=== PATIENT | female | born 1970 | race Caucasian/White ===

== ENCOUNTER 2017-08-30 19:02 | Inpatient (IN) | payer OTHER ==
[~2017-08-30] VITALS: Ht 162.6 cm; Wt 76.1 kg
[2017-08-30] VITALS (8 sets, daily range): BP systolic 90–122; BP diastolic 55–76; PULSE 94–127; RESP 16–18; TEMP 99.1–102.3; O2SAT 95–97
[2017-08-30] MEDS: AZTREONAM INJ 1,000 MG in SODIUM CHLORIDE 0.9% INJ 100 ML IV SCH (00:50)
[~2017-08-30 19:02] MED LIST: IRON PO; LOVA40TA PO; MULT1TAB84 PO; PROT40TA PO; TIZA2CAP3 PO; VITAMIN C PO; [UNRECOGNIZED DRUG - CODE] NASAL
[2017-08-30] MEDS ORDERED: SODIUM CHLOR 0.9% 1000 ML INJ 1,000 ML IV SCH ×2 (19:46→21:45)
--- NOTE | 2017-08-30 19:46 | PD ---
HPI . Fever, headache, abdominal pain Chief Complaint: fever, headache, abdominal pain Time Seen by Provider: 19:27 Travel History International Travel<30 days: No Contact w/Intl Traveler<30days: No Traveled to known affect area: No History of Present Illness HPI The patient is a 47-year-old female with a history of Juvencio-en-Y gastric bypass that complains of generalized abdominal pain and global headache beginning this morning. This afternoon she experienced fever and fatigue. She recently had a breast reduction surgery on the by Dr. De La Cruz and the drains came out on the and for the last 2 hours she complains of right breast pain. She has nausea without vomiting. She denies any diarrhea. She denies any dysuria, frequency or urgency. She denies any cough or shortness of breath. She has had a cholecystectomy but still has her appendix. PFSH Past Medical History Anemia: Yes Arthritis: No Asthma: No Autoimmune Disease: No Blood Disorders: No Anxiety: Yes Depression: Yes Heart Rhythm Problems: No Cancer: Yes (CERVICAL) Cardiovascular Problems: No High Cholesterol: Yes Chemotherapy: No Chest Pain: No Congestive Heart Failure: No COPD: No Cerebrovascular Accident: No Diabetes: Yes (DM II WHICH RESOLVED POST LAP BAND SURGERY) Diminished Hearing: No Endocrine: Yes Gastrointestinal Disorders: Yes (GERD) GERD: Yes Glaucoma: No Genitourinary: No Headaches: No Hepatitis: No Hiatal Hernia: Yes Hypertension: No Immune Disorder: No Kidney Stones: No 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) Neurologic: No Psychiatric: Yes (DEPRESSION) Reproductive: No Respiratory: No Migraines: Yes Myocardial Infarction: No Pancreatitis: Yes Radiation Therapy: No Renal Failure: No Seizures: No Sickle Cell Disease: No Sleep Apnea: No Thyroid Disease: No Ulcer: No Menopausal: Yes : 3 Para: 2 Miscarriage: 1 Past Surgical History Abdominal Surgery: Yes (LAP BAND, CHOLYCYSTECTOMY) AICD: No Appendectomy: No Arteriovenous Shunt: No Body Medical Devices: LAP BAND Cardiac Surgery: No Cholecystectomy: Yes Coronary Stent: Yes Ear Surgery: No Endocrine Surgery: No Eye Surgery: No Genitourinary Surgery: No Gynecologic Surgery: Yes (HYSTERECTOMY) Hysterectomy: Yes Insulin Pump: No Joint Replacement: No Oral Surgery: No Pacemaker: No Thoracic Surgery: No Tonsillectomy: Yes Other Surgery: Yes (LAP BAND) Social History Alcohol Use: Yes (occ) Tobacco Use: No Substance Use: No Allergies-Medications (Allergen,Severity, Reaction): Coded Allergies: amoxicillin (Unverified Adverse Reaction, Severe, SEVERE VOMITING, 07/14/17 ) clavulanic acid (Unverified Adverse Reaction, Severe, SEVERE VOMITING, ) Reported Meds & Prescriptions Reported Meds & Active Scripts Active Reported N[place] Nasal Inh (Cyanocobalamin) 500 Mcg/0.1 Ml [place] 500 Mcg NASAL Q7D 1 spray in one nostril once weekly, 1 hour before or 1 hour after ingestion of hot foods/liquids. [Iron + Vitamin C] Unknown Dose PO DAILY Multivitamin Adults (Multiple Vitamins W/ Minerals) 1 Tab 1 Tab PO DAILY Protonix (Pantoprazole Sodium) 40 Mg Tab 40 Mg PO HS Tizanidine (Tizanidine HCl) 2 Mg Cap 2 Mg PO HS Lovastatin 40 Mg Tab 40 Mg PO HS Review of Systems Except as stated in HPI: all other systems reviewed are Neg Physical Exam Narrative GENERAL: The patient appears fatigued, but will answer questions quickly and appropriately. Vital signs show heart rate of 127, temperature 102.3 but otherwise normal. SKIN: Focused skin assessment warm/dry. HEAD: Atraumatic. Normocephalic. EYES: Pupils equal and round. No scleral icterus. No injection or drainage. ENT: No nasal bleeding or discharge. Mucous membranes pink and moist. NECK: Trachea midline. No JVD. There is no meningismus present. CARDIOVASCULAR: Regular rate and rhythm. No murmur appreciated. RESPIRATORY: No accessory muscle use. Clear to auscultation. Breath sounds equal bilaterally. GASTROINTESTINAL: Abdomen soft, with diffuse tenderness in all 4 quadrants, nondistended. Hepatic and splenic margins not palpable. No guarding or rebound is present. MUSCULOSKELETAL: No obvious deformities. No clubbing. No cyanosis. No edema. NEUROLOGICAL: Awake and alert. No obvious cranial nerve deficits. Motor grossly within normal limits. Normal speech. PSYCHIATRIC: Appropriate mood and affect; insight and judgment normal. Breast: Right breast has tenderness and skin discoloration in the medial lower quadrant. No fluctuance is palpated but she is exquisitely tender in that area. Data Data Last Documented VS Vital Signs Date Time Temp Pulse Resp B/P (MAP) Pulse Ox O2 Delivery O2 Flow Rate FiO2 08/30/17 20:30 102.0 112 16 122/70 (87) 95 Orders Orders Complete Blood Count With Diff (08/30/17 19:37) Comprehensive Metabolic Panel (08/30/17 19:37) Beta Hcg (Quant/Titer) (08/30/17 19:37) Lactic Acid Sepsis Protocol (08/30/17 19:37) Lipase (08/30/17 19:37) Urinalysis - C+S If Indicated (08/30/17 19:37) Blood Culture (08/30/17 19:37) Chest, Single Ap (08/30/17 19:37) Blood Glucose (08/30/17 19:37) Ecg Monitoring (08/30/17 19:37) Iv Access Insert/Monitor (08/30/17 19:37) Oximetry (08/30/17 19:37) Oxygen Administration (08/30/17 19:37) Ct Abd/Pel W Iv Contrast(Rout) (08/30/17 19:37) Morphine Inj (Morphine Inj) (08/30/17 20:00) Ondansetron Inj (Zofran Inj) (08/30/17 20:00) Sodium Chlor 0.9% 1000 Ml Inj (Ns 1000 M (08/30/17 19:46) Iohexol 350 Inj (Omnipaque 350 Inj) (08/30/17 20:18) Sodium Chlor 0.9% 1000 Ml Inj (Ns 1000 M (08/30/17 21:45) Ketorolac Inj (Toradol Inj) (08/30/17 21:45) Vancomycin Inj (Vancomycin Inj) (08/30/17 21:45) Us Breast Unilateral (08/30/17 ) Vancomycin Consult Pharmacy (Vancomycin (08/30/17 22:00) Aztreonam Inj (Azactam Inj) (08/30/17 22:00) Metronidazole 500 Mg Inj (Flagyl 500 Mg (08/30/17 22:00) Admit To Inpatient (08/30/17 ) Vital Signs (Adult) Q4H (08/30/17 21:55) Activity Oob Ad Gretel (08/30/17 21:55) Lead Nitrate Processor / Telemetry .CONTINUOUS (08/30/17 21:55) Intake + Output JACINTA.QSHIFT (08/30/17 21:55) Diet Regular Basic (08/31/17 Breakfast) Sodium Chlor 0.9% 1000 Ml Inj (Ns 1000 M (08/30/17 21:55) Sodium Chloride 0.9% Flush (Ns Flush) (08/30/17 22:00) Sodium Chloride 0.9% Flush (Ns Flush) (08/31/17 09:00) Ondansetron Inj (Zofran Inj) (08/30/17 22:00) Comprehensive Metabolic Panel (08/31/17 06:00) Complete Blood Count With Diff (08/31/17 06:00) Scd Bilateral/Knee High JACINTA.BID (08/30/17 21:55) Juan Bilateral/Knee High JACINTA.QSHIFT (08/30/17 22:00) Acetaminophen (Tylenol) (08/30/17 22:00) Acetamin-Hydrocod 325-5 Mg ([place] 5-325 (08/30/17 22:00) Morphine Inj (Morphine Inj) (08/30/17 22:00) Docusate Sodium-Senna (Nandini-Colace) (08/31/17 09:00) Magnesium Hydroxide Liq (Milk Of Magnesi (08/30/17 22:00) Sennosides (Senokot) (08/30/17 22:00) Bisacodyl Supp (Dulcolax Supp) (08/30/17 22:00) Lactulose Liq (Lactulose Liq) (08/30/17 22:00) Inpatient Certification (08/30/17 ) Pravastatin (Pravachol) (08/31/17 21:00) Multivitamins-Minerals Therap (Theragran (08/31/17 09:00) Pantoprazole (Protonix) (08/31/17 21:00) Tizanidine Hcl (Zanaflex) (08/31/17 21:00) Labs Laboratory Tests Test 08/30/17 20:15 08/30/17 21:00 White Blood Count 8.7 TH/MM3 Red Blood Count 4.33 MIL/MM3 Hemoglobin 11.9 GM/DL Hematocrit 36.3 % Mean Corpuscular Volume 84.0 FL Mean Corpuscular Hemoglobin 27.5 PG Mean Corpuscular Hemoglobin Concent 32.7 % Red Cell Distribution Width 13.3 % Platelet Count 268 TH/MM3 Mean Platelet Volume 8.7 FL Neutrophils (%) (Auto) 85.3 % Lymphocytes (%) (Auto) 7.5 % Monocytes (%) (Auto) 4.8 % Eosinophils (%) (Auto) 0.5 % Basophils (%) (Auto) 1.9 % Neutrophils # (Auto) 7.4 TH/MM3 Lymphocytes # (Auto) 0.7 TH/MM3 Monocytes # (Auto) 0.4 TH/MM3 Eosinophils # (Auto) 0.0 TH/MM3 Basophils # (Auto) 0.2 TH/MM3 CBC Comment AUTO DIFF Differential Comment AUTO DIFF CONFIRMED Platelet Estimate NORMAL Platelet Morphology Comment CLUMPED Red Cell Morphology Comment NORMAL Blood Urea Nitrogen 13 MG/DL Creatinine 0.97 MG/DL Random Glucose 117 MG/DL Total Protein 6.2 GM/DL Albumin 3.0 GM/DL Calcium Level 7.8 MG/DL Alkaline Phosphatase 105 U/L Aspartate Amino Transf (AST/SGOT) 15 U/L Alanine Aminotransferase (ALT/SGPT) 36 U/L Total Bilirubin 0.2 MG/DL Sodium Level 134 MEQ/L Potassium Level 4.0 MEQ/L Chloride Level 101 MEQ/L Carbon Dioxide Level 25.2 MEQ/L Anion Gap 8 MEQ/L Estimat Glomerular Filtration Rate 61 ML/MIN Lactic Acid Level 2.2 mmol/L Lipase 119 U/L Human Chorionic Gonadotropin, Quant 1 MIU/ML Urine Color YELLOW Urine Turbidity CLEAR Urine pH 7.5 Urine Specific [place] GREATER THAN 1.035 Urine Protein NEG mg/dL Urine Glucose (UA) NEG mg/dL Urine Ketones NEG mg/dL Urine Occult Blood NEG Urine Nitrite NEG Urine Bilirubin NEG Urine Leukocyte Esterase NEG Urine RBC 4-9 /hpf Urine WBC 3-5 /hpf Urine Squamous Epithelial Cells 0-5 /hpf Microscopic Urinalysis Comment CULT NOT INDICATED MDM Medical Decision Making Medical Screen Exam Complete: Yes Emergency Medical Condition: Yes Medical Record Reviewed: Yes Interpretation(s) The complete metabolic profile shows a sodium of 134, GFR of 61, calcium 7.8, total protein 6.2 with albumin 3.0 but is otherwise unremarkable. The lipase is normal. The beta-hCG is 1, she is not . The lactic acid is 2.2. Differential Diagnosis Right breast infection, intestinal abscess, small bowel obstruction, pancreatitis, electrolyte imbalance, dehydration, anemia, viral syndrome, renal insufficiency, sepsis Narrative Course The patient fits the criteria for sepsis with elevated lactic acid, tachycardia and a temperature 102.3. The CT abdomen/pelvis was unremarkable and we will look for an infection in the right breast where the patient has also symptomatic. An ultrasound is ordered of the right breast. The patient does fit the criteria for sepsis and will be admitted to Dr. Amaya. Sepsis Criteria SIRS Criteria (2 or more): Temp > 100.9 or < 96.8, Heart rate over 90 Severe Sepsis (+one): Lactate >2 Physician Communication Physician Communication I discussed the patient with Dr. Amaya. Diagnosis Primary Impression: Sepsis Additional Impression: Infection of right breast Admitting Information Admitting Physician Requests: Admit Kenyon Mascorro MD Aug 30, 2017 19:46
[2017-08-30] MEDS ORDERED: MORPHINE SULFATE 4 MG/ML INJ IV PUSH ONE (20:00)
[2017-08-30] MEDS ORDERED: ONDANSETRON HCL 4 MG/2 ML VIAL IVP ONE (20:00)
--- NOTE | 2017-08-30 20:06 | RADRPT ---
EXAM DATE/TIME: 08/30/2017 19:46 [facility] COMPARISON: No previous studies available for comparison. INDICATIONS : Fever, cough. MEDICAL HISTORY : None. SURGICAL HISTORY : Breast reduction. ENCOUNTER: Initial ACUITY: 1 day PAIN SCORE: 4/10 LOCATION: Right chest FINDINGS: A single view of the chest demonstrates the lungs to be symmetrically aerated without evidence of mas s, infiltrate or effusion. The cardiomediastinal contours are unremarkable. Osseous structures are intact. CONCLUSION: The lungs are clear. Yaya Mercedes MD on August 30, 2017 at 20:04 Board Certified Radiologist. This report was verified electronically.
[2017-08-30] MEDS ORDERED: IOHEXOL 350 MG/ML 10 ML VIAL (for RAD DIAG) IVCONTRAST ONE (20:18)
[2017-08-30 20:50] LABS: AUTOMATED NEUTROPHIL # 7.4 TH/MM3 (1.8-7.7); BASOPHIL # 0.2 TH/MM3 (0-0.2); BASOPHIL % 1.9 % (0.0-2.0); EOSINOPHIL % 0.5 % (0.0-4.0); HEMATOCRIT 36.3 % (35.0-46.0); LYMPH % 7.5 % (9.0-44.0); LYMPHOCYTE # 0.7 TH/MM3 (1.0-4.8); MEAN CORPUSCULAR HEMOGLOBIN 27.5 PG (27.0-34.0); MEAN CORPUSCULAR HGB CONC 32.7 % (32.0-36.0); MONO % 4.8 % (0.0-8.0); NEUT % 85.3 % (16.0-70.0); PLATELET COUNT 268 TH/MM3 (150-450); RED BLOOD COUNT 4.33 MIL/MM3 (4.00-5.30); RED CELL DISTRIBUTION WIDTH 13.3 % (11.6-17.2); WHITE BLOOD COUNT 8.7 TH/MM3 (4.0-11.0)
--- NOTE | 2017-08-30 20:50 | RADRPT ---
EXAM DATE/TIME: 08/30/2017 20:00 [facility] COMPARISON: CHEST SINGLE AP, August 30, 2017, 19:46. INDICATIONS : Left lower quadrant pain. IV CONTRAST: 100 cc Omnipaque 350 (iohexol) IV ORAL CONTRAST: No oral contrast ingested. RADIATION DOSE: 12.66 CTDIvol (mGy) MEDICAL HISTORY : Gastroesophageal reflux disease. Hernia, hiatal. SURGICAL HISTORY : Hysterectomy. Cholecystectomy.Gastric banding. Breast reduction. ENCOUNTER: Initial ACUITY: 1 day PAIN SCALE: 5/10 LOCATION: Left lower quadrant TECHNIQUE: Volumetric scanning of the abdomen and pelvis was performed. Using automated exposure control and ad justment of the mA and/or kV according to patient size, radiation dose was kept as low as reasonably achievable to obtain optimal diagnostic quality images. DICOM format image data is available electro nically for review and comparison. FINDINGS: LOWER LUNGS: The visualized lower lungs are clear. LIVER: Homogeneous density without lesion. There is no dilation of the biliary tree. Hemoclips in the port a from prior cholecystectomy.. SPLEEN: Normal size without lesion. PANCREAS: Within normal limits. KIDNEYS: Normal in size and shape. There is no mass, stone or hydronephrosis. Large simple cyst exophytic fr om the lower pole of the left kidney measuring 6.8 cm. ADRENAL GLANDS: Within normal limits. VASCULAR: There is no aortic aneurysm. BOWEL/MESENTERY: Anastomosis suture lines about the stomach. No dilated loops of small or large bowel. No evidence o f free fluid. ABDOMINAL WALL: Multifocal areas of soft tissue density about the right anterior and lateral chest wall extending to the posterior axillary line, the largest measuring 9.[address] density 66 Hounsfield units . There is a history of prior breast reduction. Recommend clinical correlation. RETROPERITONEUM: There is no lymphadenopathy. BLADDER: No wall thickening or mass. REPRODUCTIVE: Within normal limits. INGUINAL: There is no lymphadenopathy or hernia. MUSCULOSKELETAL: Within normal limits for patient age. CONCLUSION: 1. No dilated loops of small or large bowel. 2. Multiple soft tissue densities in the right anterior and lateral chest subcutaneous tissues. Diomedes mmend correlation with clinical and surgical history. Yaya Mercedes MD on August 30, 2017 at 20:43 Board Certified Radiologist. This report was verified electronically.
[2017-08-30 21:08] LABS: CHLORIDE 101 MEQ/L (98-107); HEMO FLAGS AUTO DIFF; SODIUM (NA) 134 MEQ/L (136-145)
[2017-08-30 21:12] LABS: ANION GAP 8 MEQ/L (5-15); BICARBONATE 25.2 MEQ/L (21.0-32.0)
[2017-08-30 21:13] LABS: BLOOD UREA NITROGEN 13 MG/DL (7-18)
[2017-08-30 21:14] LABS: BLOOD, URINE NEG (NEG); GLUCOSE,URINE NEG (NEG); KETONE, URINE NEG (NEG); NITRITE,URINE NEG (NEG); PH, URINE 7.5 (5.0-8.5)
[2017-08-30 21:15] LABS: ALT (GPT) 36 U/L (10-53); AST (GOT) 15 U/L (15-37); GLOMERULAR FILTRATION RATE 61 ML/MIN (>89)
[2017-08-30 21:17] LABS: TOTAL BILIRUBIN ADULT 0.2 MG/DL (0.2-1.0)
[2017-08-30 21:18] LABS: ALKALINE PHOSPHATASE 105 U/L (45-117)
[2017-08-30 21:20] LABS: BETA HCG QUANT 1 MIU/ML (0-5)
[2017-08-30 21:27] LABS: PLATELET ESTIMATE SMEAR NORMAL (NORMAL); PLATELET MORPHOLOGY CLUMPED (NORMAL); SCAN/DIFF AUTO DIFF CONFIRMED
[2017-08-30 21:32] LABS: URINE COLOR YELLOW (YELLW/STRAW)
[2017-08-30 21:33] LABS: SQUAMOUS EPITHELIAL CELL URINE 0-5 /hpf (0-5)
[2017-08-30 21:36] LABS: COMMENT (UR) CULT NOT INDICATED; CULTURE IF INDICATED CULT NOT INDICATED
[2017-08-30] MEDS ORDERED: KETOROLAC TROMETHAMINE 60 MG/2 ML (IM) VIAL IVP ONE (21:45)
[2017-08-30] MEDS ORDERED: VANCOMYCIN INJ 1,250 MG in SODIUM CHLOR 0.9% 250 ML INJ 250 ML IV ONE (21:45)
[2017-08-30] MEDS: SODIUM CHLOR 0.9% 1000 ML INJ 1,000 ML IV SCH (21:55)
[2017-08-30] MEDS ORDERED: SODIUM CHLORIDE 0.9% FLUSH 10 ML FLUSH IV FLUSH PRN (22:00)
[2017-08-30] MEDS ORDERED: LACTULOSE SYRUP 20 GM/30 ML CUP PO PRN (22:00)
[2017-08-30] MEDS ORDERED: MORPHINE SULFATE 4 MG/ML INJ IV PUSH PRN (22:00)
[2017-08-30] MEDS ORDERED: BISACODYL 10 MG SUPP RECTAL PRN (22:00)
[2017-08-30] MEDS ORDERED: SENNOSIDES 8.6 MG TAB PO PRN (22:00)
[2017-08-30] MEDS ORDERED: MAGNESIUM HYDROXIDE SUSP 30 ML CUP PO PRN (22:00)
[2017-08-30] MEDS ORDERED: Vancomycin Consult Pharmacy 1 EA OTHER SCH (22:00)
[2017-08-30 22:33] LABS: LACTIC ACID GHOST NOT REPORTABLE
--- NOTE | 2017-08-30 22:58 | RADRPT ---
EXAM DATE/TIME: 08/30/2017 22:26 [facility] COMPARISON: No previous studies available for comparison. INDICATIONS : Abscess. MEDICAL HISTORY : Gastroesophageal reflux disease. Hypercholesterolemia. Diabetes mellitus type 2. Migraine. Pancreatit is. Hernia, hiatal. Cyst on kidney. Depression. Anxiety. carcinoma, cervical. SURGICAL HISTORY : Tonsillectomy. Cholecystectomy. Hysterectomy. Lap band surgery. ENCOUNTER: Initial ACUITY: 2 weeks PAIN SCORE: 10/10 LOCATION: Right breast. FINDINGS: Patient underwent reduction mammoplasty on 08/19/17. The right breast is scanned. There is a anechoi c fairly smooth margined fluid collection extending from 3: 00 through 6:00 right breast measuring 7.4 x 2.3 x 6.6 cm. There is some scattered internal echo but no layering fluid. No peripheral flow by color Doppler. CONCLUSION: Greater than 7 cm fluid collection in the right breast post reduction mammoplasty. Differential cons iderations include seroma and abscess. No increased flow by color Doppler about the fluid collection . Yaya Mercedes MD on August 30, 2017 at 22:54 Board Certified Radiologist. This report was verified electronically.
[2017-08-30] MEDS ORDERED: diphenhydrAMINE HCL 50 MG/ML VIAL IV PUSH ONE (23:15)
[2017-08-30] MEDS: metroNIDAZOLE 500 MG INJ 100 ML IV SCH (23:40)
[2017-08-31] VITALS (8 sets, daily range): BP systolic 89–102; BP diastolic 56–69; PULSE 80–108; RESP 14–17; TEMP 97.4–100.4; O2SAT 94–98
[2017-08-31 06:40] LABS: AUTOMATED NEUTROPHIL # 7.3 TH/MM3 (1.8-7.7); BASOPHIL # 0.1 TH/MM3 (0-0.2); BASOPHIL % 0.8 % (0.0-2.0); EOSINOPHIL % 0.3 % (0.0-4.0); HEMATOCRIT 32.5 % (35.0-46.0); LYMPH % 7.4 % (9.0-44.0); LYMPHOCYTE # 0.6 TH/MM3 (1.0-4.8); MEAN CELL VOLUME 83.9 FL (80.0-100.0); MEAN CORPUSCULAR HEMOGLOBIN 27.9 PG (27.0-34.0); MEAN CORPUSCULAR HGB CONC 33.3 % (32.0-36.0); MONO % 4.2 % (0.0-8.0); NEUT % 87.3 % (16.0-70.0); PLATELET COUNT 238 TH/MM3 (150-450); RED BLOOD COUNT 3.87 MIL/MM3 (4.00-5.30); RED CELL DISTRIBUTION WIDTH 13.4 % (11.6-17.2); WHITE BLOOD COUNT 8.3 TH/MM3 (4.0-11.0)
[2017-08-31 06:42] LABS: HEMO FLAGS DIFF FINAL
[2017-08-31] MEDS: metroNIDAZOLE 500 MG INJ 100 ML IV SCH (06:48)
[2017-08-31 07:05] LABS: ALKALINE PHOSPHATASE 96 U/L (45-117); ALT (GPT) 33 U/L (10-53); ANION GAP 8 MEQ/L (5-15); AST (GOT) 18 U/L (15-37); BICARBONATE 24.5 MEQ/L (21.0-32.0); BLOOD UREA NITROGEN 12 MG/DL (7-18); CHLORIDE 109 MEQ/L (98-107); GLOMERULAR FILTRATION RATE 77 ML/MIN (>89); SODIUM (NA) 141 MEQ/L (136-145); TOTAL BILIRUBIN ADULT 0.3 MG/DL (0.2-1.0)
[2017-08-31] MEDS: AZTREONAM INJ 1,000 MG in SODIUM CHLORIDE 0.9% INJ 100 ML IV SCH ×2 (08:00→16:00)
[2017-08-31] MEDS: SODIUM CHLOR 0.9% 1000 ML INJ 1,000 ML IV SCH ×2 (08:45→17:55)
[2017-08-31] MEDS: LACTOBACILLUS ACIDOPHILUS TAB PO SCH ×3 (08:47→18:00)
[2017-08-31] MEDS: ACETAMINOPHEN/HYDROcodone 325 MG/5 MG TAB PO PRN ×2 (08:48→21:58)
[2017-08-31] MEDS: DOCUSATE SODIUM 50 MG/SENNA 8.6 MG TAB PO SCH ×2 (08:50→20:49)
[2017-08-31] MEDS: MULTIVITAMINS/MINERALS THERAPEUTIC TAB PO SCH (08:50)
[2017-08-31] MEDS: SODIUM CHLORIDE 0.9% FLUSH 10 ML FLUSH IV FLUSH SCH ×2 (08:51→20:49)
[2017-08-31] MEDS: ACETAMINOPHEN 325 MG TAB PO PRN ×2 (08:55→16:56)
--- NOTE | 2017-08-31 10:10 | HHI.HP ---
[facility] Service [facility] Primary Care Physician Tami Craft MD Admission Diagnosis sepsis, breast infection Diagnoses: (1) Severe sepsis Diagnosis: Principal (2) Infection of right breast Diagnosis: Principal Chief Complaint: Fatigue, fever, breast pain Travel History International Travel<30 Days: No Contact w/Intl Traveler <30 Da: No Traveled to Known Affected Are: No Sepsis Criteria SIRS Criteria (2 or more): Temp > 100.9 or < 96.8, Heart rate over 90 Sepsis Criteria (SIRS+source): Infect source susp/known Severe Sepsis (+one): Hypotension, Lactate >2 Criteria Outcome: Meets severe sepsis criteria History of Present Illness Written by Devin Mascorro, acting as scribe for Dr. Tobar on 08/31/17 at 09 :46. 47-year-old female with known history of hypertension, hyperlipidemia , anxiety, depression, recent breast reduction surgery who presented to hospital because of fever, chills, nausea, fatigue. Patient states that she was doing well and in normal state of health until yesterday when she was eating breakfast and started developing some bad cramps in her abdomen. She stopped eating the cramping went away. She felt very cold so she laid down. He checked her temperature is 103.5. She indicated that she was significantly fatigued had minimal sore throat, neck pain, nausea, diarrhea. She states that she called her physician and was told to go to the ER for evaluation. The patient sat up she noticed significant right breast pain. When she got to the emergency department they noticed that there is some blood oozing from her incision site of her right breast. She still continued to have pain in her right breast until she laid down and the pain would improve. At the present time she is experiencing significant headache, neck ache, burning sensation in her eyes, lightheadedness. Patient does have history of migraines, however she states that this is a different discomfort. Patient has recent history of breast reduction surgery on August 19, [address] Antonio. As indicated that she have the drains out on the . She was evaluated again on August 26 and was doing well. Was instructed to continue Bactroban on the incision sites. Patient did come to emergency department and was found to have criteria for severe sepsis. With fever, tachycardia, CT scan and ultrasound indicating significant fluid collection in the right breast. Consideration would include seroma and abscess. Patient was recommended by the ER physician admission the hospital for IV antibiotics and continued management. Patient states that she was given antibiotic in emergency department which by records indicate vancomycin and she developed significant itching of her entire body. Patient was given Benadryl and she improved. Review of Systems Constitutional: COMPLAINS OF: Fever, Chills Gastrointestinal: COMPLAINS OF: Diarrhea, Nausea Musculoskeletal: COMPLAINS OF: Joint pain, Neck pain Integumentary: COMPLAINS OF: Abnormal pigmentation, Breast masses, Breast skin changes Neurologic: COMPLAINS OF: Headache Except as stated in HPI: all other systems reviewed are Neg Past Family Social History Past Medical History Hypertension History of diabetes History of hyperlipidemia Anxiety/depression History of anemia Hiatal hernia Gastroesophageal reflux Past Surgical History LAP-BAND procedure Juvencio-en-y procedure Cholecystectomy Hysterectomy Reported Medications Reported Meds & Active Scripts Active Reported [Iron + Vitamin C] Unknown Dose PO DAILY Multivitamin Adults (Multiple Vitamins W/ Minerals) 1 Tab 1 Tab PO DAILY Protonix (Pantoprazole Sodium) 40 Mg Tab 40 Mg PO HS Allergies: Coded Allergies: vancomycin (Verified Allergy, Intermediate, Itching, 08/30/17) ITCHING STARTED AFTER RECIEVING APPROX 50CC VANCO IV amoxicillin (Unverified Adverse Reaction, Severe, SEVERE VOMITING, 07/14/17 ) clavulanic acid (Unverified Adverse Reaction, Severe, SEVERE VOMITING, ) Family History Reviewed is significant for mother having coronary artery disease status post CABG, diabetes, female cancer, mastectomy, lupus. Father with COPD Social History Patient states that she quit smoking 15 years ago, does drink alcohol, glass of wine 1-2 times a month, denies any illicit drugs Physical Exam Vital Signs Vital Signs Date Time Temp Pulse Resp B/P (MAP) Pulse Ox O2 Delivery O2 Flow Rate FiO2 08/31/17 08:00 100.4 108 16 102/69 (80) 94 08/31/17 04:00 99.1 95 14 92/60 (71) 98 08/31/17 01:36 90 08/31/17 01:25 98.9 90 14 92/58 (69) 98 10/2/17 00:11 92 16 89/56 (67) 08/30/17 23:44 94 16 90/57 (68) 08/30/17 23:25 94 16 97/64 (75) 08/30/17 23:15 97 16 90/55 (67) 08/30/17 23:12 96 Nasal Cannula 2.00 08/30/17 23:00 99.1 98 108/72 (84) 08/30/17 22:30 103 16 102/76 (85) 97 2.00 08/30/17 21:45 112 16 98/75 (83) 96 2.00 08/30/17 21:30 96 Nasal Cannula 2.00 08/30/17 20:30 102.0 119 18 112/72 (85) 96 08/30/17 20:30 102.0 112 16 122/70 (87) 95 08/30/17 19:14 102.3 127 16 119/67 (84) 95 Physical Exam GENERAL: Well-developed, well-nourished, in no acute distress. alert and orientated HEENT: Head is normocephalic without any lesions or masses noted. Facial features are symmetric. Eyes: Pupils equal round reactive to light. Extraocular muscles are intact. Conjunctivae were clear. Oropharyngeal: Pharynx without any erythema edema. Tongue is midline without deviation. Buccal mucosa is moist without any masses or lesions NECK: Trachea midline no deviation. No JVD, no bruits are appreciated. Patient with significant pain on neck flexion, there is palpable tenderness noted in the paraspinal muscles which are of the entire cervical spine CARDIAC: Regular rhythm, regular rate. S1/S2 are heard. No murmurs gallops or rubs. LUNGS: Clear to auscultation bilaterally. No wheeze, rhonchi or rales. No use of accessory muscles on inspiration or expiration. ABDOMEN: Soft, nontender. Nondistended. Bowel sounds heard in all 4 quadrants. No organomegaly or masses. Negative rebound, negative guarding EXTREMITIES: No edema, pulses are equal bilaterally. No cyanosis or clubbing NEUROLOGY: Mood and affect appear appropriate. Cranial nerves II through XII grossly intact. Muscle strength 5/5 in upper and lower extremities bilaterally. Deep tendon reflexes are 2+ in upper and lower extremities bilaterally. BREAST: Left breast appears to have nice healing incision. Right breast with pain on palpation of the medial aspect. There is a fullness enlargement of the medial aspect of the breast. There is ecchymosis noted inferior to the breast in the right flank. Laboratory Laboratory Tests Test 08/30/17 20:15 08/30/17 21:00 08/30/17 22:40 08/31/17 06:12 White Blood Count 8.7 8.3 Red Blood Count 4.33 3.87 Hemoglobin 11.9 10.8 Hematocrit 36.3 32.5 Mean Corpuscular Volume 84.0 83.9 Mean Corpuscular Hemoglobin 27.5 27.9 Mean Corpuscular Hemoglobin Concent 32.7 33.3 Red Cell Distribution Width 13.3 13.4 Platelet Count 268 238 Mean Platelet Volume 8.7 8.5 Neutrophils (%) (Auto) 85.3 87.3 Lymphocytes (%) (Auto) 7.5 7.4 Monocytes (%) (Auto) 4.8 4.2 Eosinophils (%) (Auto) 0.5 0.3 Basophils (%) (Auto) 1.9 0.8 Neutrophils # (Auto) 7.4 7.3 Lymphocytes # (Auto) 0.7 0.6 Monocytes # (Auto) 0.4 0.3 Eosinophils # (Auto) 0.0 0.0 Basophils # (Auto) 0.2 0.1 CBC Comment AUTO DIFF DIFF FINAL Differential Comment AUTO DIFF CONFIRMED Platelet Estimate NORMAL Platelet Morphology Comment CLUMPED Red Cell Morphology Comment NORMAL Blood Urea Nitrogen 13 12 Creatinine 0.97 0.80 Random Glucose 117 106 Total Protein 6.2 5.6 Albumin 3.0 2.6 Calcium Level 7.8 7.7 Alkaline Phosphatase 105 96 Aspartate Amino Transf (AST/SGOT) 15 18 Alanine Aminotransferase (ALT/SGPT) 36 33 Total Bilirubin 0.2 0.3 Sodium Level 134 141 Potassium Level 4.0 4.0 Chloride Level 101 109 Carbon Dioxide Level 25.2 24.5 Anion Gap 8 8 Estimat Glomerular Filtration Rate 61 77 Lactic Acid Level 2.2 1.0 Lipase 119 Human Chorionic Gonadotropin, Quant 1 Urine Color YELLOW Urine Turbidity CLEAR Urine pH 7.5 Urine Specific [place] GREATER THAN 1.035 Urine Protein NEG Urine Glucose (UA) NEG Urine Ketones NEG Urine Occult Blood NEG Urine Nitrite NEG Urine Bilirubin NEG Urine Leukocyte Esterase NEG Urine RBC 4-9 Urine WBC 3-5 Urine Squamous Epithelial Cells 0-5 Microscopic Urinalysis Comment CULT NOT INDICATED Date/Time Source Procedure Growth Status 08/30/17 20:30 Blood Peripheral Aerobic Blood Culture Pending Received 08/30/17 20:30 Blood Peripheral Anaerobic Blood Culture Pending Received Result Diagram: 08/31/17 0612 08/31/17 0612 Imaging Last Impressions Chest X-Ray 08/30/171936 Signed Impressions: Service Date/Time: Wednesday, August 30, 2017 19:46 - CONCLUSION: The lungs are clear. Yaya Mercedes MD Abdomen/Pelvis CT 08/30/171936 Signed Impressions: Service Date/Time: Wednesday, August 30, 2017 20:00 - CONCLUSION: 1. No dilated loops of small or large bowel. 2. Multiple soft tissue densities in the right anterior and lateral chest subcutaneous tissues. Recommend correlation with clinical and surgical history. Yaya Mercedes MD Septic Shock Reassessment Heart: Other (sinus tachycardia) Lungs: Clear Skin: Warm Peripheral Pulses: Bounding Right Radial Bounding Left Radial Capillary Refill: Brisk, <2 seconds Caprini VTE Risk Assessment Caprini VTE Risk Assessment: Mod/High Risk (score >= 2) Caprini Risk Assessment Model Point Value = 1 Point Value = 2 Point Value = 3 Point Value = 5 Age 41-60 Minor surgery BMI > 25 kg/m2 Swollen legs Varicose veins or History of unexplained or recurrent spontaneous Oral contraceptives or hormone replacement Sepsis (< 1 month) Serious lung disease, including pneumonia (< 1 month) Abnormal pulmonary function Acute myocardial infarction Congestive heart failure (< 1 month) History of inflammatory bowel disease Medical patient at bed rest Age 61-74 Arthroscopic surgery Major open surgery (> 45 min) Laparoscopic surgery (> 45 min) Malignancy Confined to bed (> 72 hours) Immobilizing plaster cast Central venous access Age >= 75 History of VTE Family history of VTE Factor V Leiden Prothrombin [id number] Lupus anticoagulant Anticardiolipin antibodies Elevated serum homocysteine Heparin-induced thrombocytopenia Other congenital or acquired thrombophilia Stroke (< 1 month) Elective arthroplasty Hip, pelvis, or leg fracture Acute spinal cord injury (< 1 month) Prophylaxis Regimen Total Risk Factor Score Risk Level Prophylaxis Regimen 0-1 Low Early ambulation 2 Moderate Order ONE of the following: *Sequential Compression Device (SCD) *Heparin 5000 units SQ BID 3-4 Higher Order ONE of the following medications: *Heparin 5000 units SQ TID *Enoxaparin/Lovenox 40 mg SQ daily (WT < 150 kg, CrCl > 30 mL/min) *Enoxaparin/Lovenox 30 mg SQ daily (WT < 150 kg, CrCl > 10-29 mL/min) *Enoxaparin/Lovenox 30 mg SQ BID (WT < 150 kg, CrCl > 30 mL/min) AND/OR *Sequential Compression Device (SCD) 5 or more Highest Order ONE of the following medications: *Heparin 5000 units SQ TID (Preferred with Epidurals) *Enoxaparin/Lovenox 40 mg SQ daily (WT < 150 kg, CrCl > 30 mL/min) *Enoxaparin/Lovenox 30 mg SQ daily (WT < 150 kg, CrCl > 10-29 mL/min) *Enoxaparin/Lovenox 30 mg SQ BID (WT < 150 kg, CrCl > 30 mL/min) AND *Sequential Compression Device (SCD) Assessment and Plan Assessment and Plan Severe Sepsis Patient meets criteria with tachycardia, febrile illness, lactic acidosis, hypotension, possible right breast postsurgical infection Patient was given vancomycin emergency department with possible allergic reaction. Pruritus improved after Benadryl Patient continued on Azactam, clindamycin Lactic acid level has returned to normal Blood cultures are pending at this time urinalysis was unremarkable, chest x-ray does not indicate any pulmonary etiology Will need further evaluations to rule out any other etiology of her sepsis Right breast postsurgical fluid collection Etiologies could include hematoma, seroma, infection Discussed with Dr. Antonio, who recommended fluid aspiration Radiology consulted for fluid aspiration Pain control DVT prevention Sequential compression devices This note was transcribed by scribe. Araujo, Dr. Laila Tobar personally performed the history, physical exam, and medical decision making; and confirmed the accuracy of the information in the transcribed note. Discussed with interventional radiology Dr. Carrera, who recommended that the patient be monitored at [facility] as she will be having an indwelling drain right breast. Consult infectious disease. Authenticated by Dr. Laila Tobar on 08/31/17 at 10:19. Physician Certification 2 Midnight Certification Type: Admission for Inpatient Services Order for Inpatient Services The services are ordered in accordance with Medicare regulations or non- Medicare payer requirements, as applicable. In the case of services not specified as inpatient-only, they are appropriately provided as inpatient services in accordance with the 2-midnight benchmark. Estimated LOS (days): 3 days is the estimated time the patient will need to remain in the hospital, assuming treatment plan goals are met and no additional complications. Post-Hospital Plan: Not yet determined Devin Mascorro Aug 31, 2017 10:09 Laila Tobar MD Aug 31, 2017 10:19
[2017-08-31] MEDS ORDERED: KETOROLAC TROMETHAMINE 30 MG/ML (IVP) VIAL IV PUSH ONE (10:15)
[2017-08-31] MEDS: CLINDAMYCIN INJ 900 MG in SODIUM CHLORIDE 0.9% INJ 100 ML IV SCH ×2 (11:00→19:00)
[2017-08-31 16:56] LABS: APTT (PATIENT) 27.6 SEC (24.3-30.1); PROTHROMBIN TIME - PATIENT 11.4 SEC (9.8-11.6)
[2017-08-31] MEDS: PRAVASTATIN SOD 40 MG TAB PO SCH (20:49)
[2017-08-31] MEDS: PANTOPRAZOLE SOD 40 MG DELAYED RELEASE TAB PO SCH (20:49)
[2017-09-01] VITALS (10 sets, daily range): BP systolic 92–109; BP diastolic 53–68; PULSE 78–117; RESP 15–20; TEMP 98–103.1; O2SAT 92–96
[2017-09-01] MEDS: CLINDAMYCIN INJ 900 MG in SODIUM CHLORIDE 0.9% INJ 100 ML IV SCH ×3 (02:38→18:08)
[2017-09-01] MEDS: AZTREONAM INJ 1,000 MG in SODIUM CHLORIDE 0.9% INJ 100 ML IV SCH ×3 (02:38→16:09)
[2017-09-01] MEDS: SODIUM CHLOR 0.9% 1000 ML INJ 1,000 ML IV SCH ×2 (03:55→13:55)
[2017-09-01] MEDS: ACETAMINOPHEN 325 MG TAB PO PRN (05:44)
[2017-09-01] MEDS: DOCUSATE SODIUM 50 MG/SENNA 8.6 MG TAB PO SCH ×2 (09:00→21:00)
[2017-09-01] MEDS: LACTOBACILLUS ACIDOPHILUS TAB PO SCH ×3 (09:00→16:54)
[2017-09-01] MEDS: SODIUM CHLORIDE 0.9% FLUSH 10 ML FLUSH IV FLUSH SCH ×2 (09:00→21:00)
[2017-09-01] MEDS: MULTIVITAMINS/MINERALS THERAPEUTIC TAB PO SCH (09:00)
--- NOTE | 2017-09-01 10:06 | PD.CONS ---
History of Present Illness Service Infectious disease Consult Requested By Dr. Tobar Reason for Consult Evaluate patient with right breast fluid collection, question infected Primary Care Physician Tami Craft MD Diagnoses: History of Present Illness Patient seen and examined. Records reviewed. Patient is a 47-year-old female, admitted to the hospital for further evaluation of fever or chills and malaise. Patient has had ongoing problem with severe back pain, and she underwent bilateral breast reduction as an outpatient last August 19. When she went home she had a drain on each breast , and reportedly it was removed the following day. She had 10 cc on the left, and 20 cc on the right. She has had fatigue since after the surgery and was told that it probably was related to the surgery. About a week after the procedure she went for follow-up with her plastic surgeon and her systems were looking good at that time, and a second follow-up was scheduled in 2 weeks. Patient started having problem the day prior to admission when she started experiencing worsening of her fatigue and generalized weakness. She started having fever and chills and the temperature was documented up to 103. She had myalgias and arthralgias. She had some nausea but no jeffrey vomiting. He denies any respiratory complaint, no diarrhea or any urinary complaint. She has been taking only Tylenol for the pain and it has not really gotten worse up until the day of admission when she started noticing a little bit more pain on her right breast. She apparently had the bruising on the right breast since after the surgery, and has been mentioned that it actually was improving. She had very minimal redness right after surgery but that has resolved. She has not really had any significant drainage on her incisions. Patient initially presented in [facility], and she had a normal temperature, but was running fevers and was tachycardic. An ultrasound of her breast showed findings of fluid collection. She has been transferred to the main hospital for further evaluation of her fluid collection. And currently is complaining of bilateral breast pain. Her WBC is normal. She is still febrile. Patient is currently on clindamycin and Azactam. He received IV Vanco and apparently had some itching during the first part of the infusion, and it was discontinued. Infectious disease consultation has requested to evaluate the patient for possible infected fluid collection in the right breast. Review of Systems Constitutional: COMPLAINS OF: Fatigue, Fever, Chills, Change in appetite Eyes: DENIES: Eye pain Ears, nose, mouth, throat: DENIES: Nasal discharge, Oral lesions, Throat pain, Ear Pain, Running Nose, Sinus Pain Respiratory: DENIES: Cough, Shortness of breath Cardiovascular: DENIES: Palpitations Gastrointestinal: COMPLAINS OF: Nausea, DENIES: Abdominal pain, Diarrhea, Vomiting, Difficulty Swallowing Genitourinary: DENIES: Urinary frequency, Dysuria Musculoskeletal: COMPLAINS OF: Joint pain, Muscle aches, DENIES: Joint Swelling Integumentary: DENIES: Rash Hematologic/lymphatic: COMPLAINS OF: Bruising Neurologic: DENIES: Headache Psychiatric: DENIES: Hallucinations Past Family Social History Allergies: Coded Allergies: vancomycin (Verified Allergy, Intermediate, Itching, 08/30/17) ITCHING STARTED AFTER RECIEVING APPROX 50CC VANCO IV amoxicillin (Unverified Adverse Reaction, Severe, SEVERE VOMITING, 07/14/17 ) clavulanic acid (Unverified Adverse Reaction, Severe, SEVERE VOMITING, ) Past Medical History Hypertension Diabetes Hyperlipidemia Anxiety/depression Anemia Hiatal hernia Gastroesophageal reflux Past Surgical History LAP-BAND procedure Juvencio-en-y procedure Cholecystectomy Hysterectomy Reported Medications I attest that I obtained, updated or reviewed the home and current medications. Reported Meds & Active Scripts Iron + Vitamin C 1 tab PO DAILY Multivitamin Adults, with Minerals) 1 Tab 1 Tab PO DAILY Protonix 40 Mg Tab mg PO HS Active Ordered Medications Tylenol prn [place] prn Azactam IV Dulcolax prn Clindamycin IV Lactinex Lactulose prn MOM prn Morphine prn MVI Zofran prn Protonix Pravachol Pericolace prn Senokot prn Zanaflex Family History Mother with CAD, S/P CABG, DM, breast CA and mastectomy, Lupus Father with COPD Social History Quit smoking 15 years ago Drink alcohol, glass of wine 1-2 times a month Denies any illicit drugs Physical Exam Vital Signs Vital Signs Date Time Temp Pulse Resp B/P (MAP) Pulse Ox O2 Delivery O2 Flow Rate FiO2 09/01/17 05:09 103.1 117 18 100/55 (70) 95 09/01/17 02:08 100 09/01/17 00:26 100.0 101 18 92/53 (66) 08/31/17 22:00 99.9 102 17 92/67 (75) 95 08/31/17 18:14 18 08/31/17 16:00 97.7 80 14 94/63 (73) 94 08/31/17 12:07 18 08/31/17 12:00 97.4 80 14 93/62 (72) 95 08/31/17 09:54 18 Physical Exam GENERAL: Patient is a well-nourished, well-developed female, awake and alert , not in respiratory distress. SKIN: Warm and dry. No generalized rash, no ecchymoses and no evidence of embolic lesions. HEAD: Atraumatic. Normocephalic. No temporal wasting, or tenderness. EYES: [place] conjunctiva. No petechia or hemorrhage. Pupils equal, round and reactive to light. Extraocular movements full and intact. No scleral icterus. No injection or drainage. EARS, NOSE AND THROAT: Nose without bleeding or purulent nasal discharge. No sinus tenderness. Mucous membranes pink and moist. No oral lesions noted. No exudate. No oral thrush. NECK: Trachea midline. Supple and not tender, no meningeal signs CARDIOVASCULAR: Regular rate and rhythm. Tachycardic. No murmurs, rubs or gallops heard RESPIRATORY: Clear to auscultation. Breath sounds equal bilaterally. No rales , wheezing or rhonchi BREAST: L breast - incision dry, no redness, no induration, no ecchymoses. R breast - incision is dry, no redness, slightly bigger compared to the L, tender to touch, has ecchymoses under the breast ABDOMEN: Soft, non-tender, nondistended. Bowel sounds present and normoactive. No guarding. No rebound. No organomegaly. EXTREMITIES: No clubbing, cyanosis, or edema.No joint effusion, has good ROM. No calf tenderness. Well perfused and warm. NEUROLOGICAL: Awake and alert. Cranial nerves grossly intact. Motor grossly within normal limits. PSYCHIATRIC: Normal affect, calm and cooperative. LINE: No evidence of infection Laboratory Laboratory Tests Test 08/31/17 16:30 Prothrombin Time 11.4 Prothromb Time International Ratio 1.0 Activated Partial Thromboplast Time 27.6 Date/Time Source Procedure Growth Status 08/30/17 20:30 Blood Peripheral Aerobic Blood Culture - Preliminary NO GROWTH IN 1 DAY Resulted 08/30/17 20:30 Blood Peripheral Anaerobic Blood Culture - Preliminary NO GROWTH IN 1 DAY Resulted Result Diagram: 08/31/1761108/31/17611 Imaging RADIOLOGY STUDIES/FILMS REVIEWED Chest X-Ray 08/30/171936 Signed Impressions: Service Date/Time: Wednesday, August 30, 2017 19:46 - CONCLUSION: The lungs are clear. Yaya Mercedes MD Abdomen/Pelvis CT 08/30/171936 Signed Impressions: Service Date/Time: Wednesday, August 30, 2017 20:00 - CONCLUSION: 1. No dilated loops of small or large bowel. 2. Multiple soft tissue densities in the right anterior and lateral chest subcutaneous tissues. Recommend correlation with clinical and surgical history. Yaya Mercedes MD Breast Ultrasound 08/30/17 0000 Signed Impressions: Service Date/Time: Wednesday, August 30, 2017 22:26 - CONCLUSION: Greater than 7 cm fluid collection in the right breast post reduction mammoplasty. Differential considerations include seroma and abscess. No increased flow by color Doppler about the fluid collection. Yaya Mercedes MD Assessment and Plan Assessment and Plan IMPRESSION Sepsis, with high fevers, chills, tachycardia, source? 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
[2017-09-01] MEDS: ALTEPLASE RECOMBINANT 2 MG VIAL ONE (13:10)
--- NOTE | 2017-09-01 13:44 | PD.RAD ---
Post Procedure Progress Note Pre Procedure Diagnosis: (1) Sepsis (2) Infection of right breast Post Procedure Diagnosis: (1) Post surgical hematoma right breast Procedure Date: Sep 01, 2017 Supervising Radiologist: Ibrahima Carrera Proceduralist/Assist: Lacy Bah, RT(R)(CV), Agueda Farias RT(R) Anesthesia: Local Plan of Activity Patient to Unit: ROPU Patient Condition: Good See PACS Report for procedural detail/treatment Drainage Procedure Procedure 1 Imaging Guidance: Ultrasound Procedure Type: Abscess Drainage (Actually mature hematoma. 3 cc apsirated and sent to lab. Discussed with Plastic Surgeon, Dr. De La Cruz. Watkins surgical bed was dry post procedure and he felt it would be OK to lyse hematoma with TPA to alleviate patient discomfort.) Indonesian: 6 Drainage: Suction (Accordian) Fluid Description: Bloody Findings: Will inject 10mg of TPA with 10cc saline into drainage catheter. Will let dwell x 8 hours and reconnect to accordion suction Ibrahima Carrera MD Sep 01, 2017 13:44
[2017-09-01] MEDS ORDERED: ALTEPLASE RECOMBINANT 2 MG VIAL OTHER ONE (14:45)
--- NOTE | 2017-09-01 15:10 | HHI.PR ---
Subjective Remarks Was seen in [facility] after drainage placed by Dr Anderson. Patient says she has headache, says she has h/o migraine headache. Says no cp, sob, n/v/d. She complaints of constipation says stool softeners received yesterday did not help much . Objective Vitals Vital Signs Date Time Temp Pulse Resp B/P (MAP) Pulse Ox O2 Delivery O2 Flow Rate FiO2 09/01/17 12:20 86 18 99/63 (75) 95 09/01/17 11:30 81 20 102/68 (79) 92 09/01/17 08:00 98.5 94 15 97/61 (73) 94 09/01/17 05:09 103.1 117 18 100/55 (70) 95 09/01/17 02:08 100 09/01/17 00:26 100.0 101 18 92/53 (66) 08/31/17 22:00 99.9 102 17 92/67 (75) 95 08/31/17 18:14 18 08/31/17 16:00 97.7 80 14 94/63 (73) 94 I/O 08/31/17 08/31/17 08/31/17 09/01/17 09/01/17 09/01/17 07:00 15:00 23:00 07:00 15:00 23:00 Intake Total 1340 ml 480 ml 360 ml Output Total 0 ml 400 ml 750 ml 3 ml 200 ml Balance 1340 ml 80 ml -750 ml 357 ml -200 ml Intake Oral 240 ml 480 ml 360 ml IV Total 1100 ml Output Urine Total 0 ml 400 ml 750 ml 3 ml Drainage Total 200 ml # Voids 0 1 1 # Bowel Movements 0 0 Result Diagram: 08/31/1761108/31/17611 Imaging Last Impressions Chest X-Ray 08/30/171936 Signed Impressions: Service Date/Time: Wednesday, August 30, 2017 19:46 - CONCLUSION: The lungs are clear. Yaya Mercedes MD Abdomen/Pelvis CT 08/30/171936 Signed Impressions: Service Date/Time: Wednesday, August 30, 2017 20:00 - CONCLUSION: 1. No dilated loops of small or large bowel. 2. Multiple soft tissue densities in the right anterior and lateral chest subcutaneous tissues. Recommend correlation with clinical and surgical history. Yaya Mercedes MD Breast Ultrasound 08/30/17 0000 Signed Impressions: Service Date/Time: Wednesday, August 30, 2017 22:26 - CONCLUSION: Greater than 7 cm fluid collection in the right breast post reduction mammoplasty. Differential considerations include seroma and abscess. No increased flow by color Doppler about the fluid collection. Yaya Mercedes MD Objective Remarks GENERAL: Well-developed, well-nourished, in no acute distress. alert and orientated CARDIAC: Regular rhythm, regular rate. S1/S2 are heard. No murmurs gallops or rubs. LUNGS: Clear to auscultation bilaterally. No wheeze, rhonchi or rales. No use of accessory muscles on inspiration or expiration. ABDOMEN: Soft, nontender. Nondistended. Bowel sounds heard in all 4 quadrants. No organomegaly or masses. Negative rebound, negative guarding EXTREMITIES: No edema, pulses are equal bilaterally. No cyanosis or clubbing NEUROLOGY: Mood and affect appear appropriate. Cranial nerves II through XII grossly intact. Muscle strength 5/5 in upper and lower extremities bilaterally. Deep tendon reflexes are 2+ in upper and lower extremities bilaterally. BREAST: Left breast appears to have nice healing incision. Right breast with pain on palpation of the medial aspect. There is a fullness enlargement of the medial aspect of the breast. There is ecchymosis noted inferior to the breast in the right flank. A/P Problem List: (1) Severe sepsis ICD Code: A41.9 - Sepsis, unspecified organism; R65.20 - Severe sepsis without septic shock (2) Infection of right breast ICD Code: N61.0 - Mastitis without abscess Status: Acute Assessment and Plan Severe Sepsis Patient meets criteria with tachycardia, febrile illness, lactic acidosis, hypotension, possible right breast postsurgical infection Patient was given vancomycin emergency department with possible allergic reaction. Pruritus improved after Benadryl Patient continued on Azactam, clindamycin Lactic acid level has returned to normal Blood cultures are pending at this time urinalysis was unremarkable, chest x-ray does not indicate any pulmonary etiology Will need further evaluations to rule out any other etiology of her sepsis Right breast postsurgical fluid collection Etiologies could include hematoma, seroma, infection Per Dr. Antonio, her plastic surgeon, recommended fluid aspiration. Interventional Radiology consulted for fluid aspiration. S/p drain placed and aspiration of 200 cc bloody fluid, patient treated with TPA, drain in place. Discusse marnie Gómez IR, appreciate recommendations. Pain control Headache/migraine: Fioricet as need. Constipation: Stool softeners/laxatives as need. DVT prevention Sequential compression devices Discussed with clementina mitchell., nurse, family at bedside, IR Sandra Barnes MD Sep 01, 2017 15:10
[2017-09-01] MEDS ORDERED: LACTULOSE SYRUP 20 GM/30 ML CUP PO ONE (15:30)
--- NOTE | 2017-09-01 16:07 | RADRPT ---
EXAM DATE/TIME: 09/01/2017 11:45 [facility] COMPARISON: No previous studies available for comparison.qqq INDICATIONS : Patient with right breast infection in need of aspiration and drain placement. MEDICAL HISTORY : HTN, HLD, Diabetes, Anemia, Hiatal hernia, Cervical cancer, GERD, Migraines, Pancreatitis SURGICAL HISTORY : LAP-Band, Juvencio-en-y gastric bypass, Cholecystectomy, Coronary stent, Breast reduction ENCOUNTER: Initial ACUITY: 2 weeks PAIN SCORE: 5/10 LOCATION: Right breast IMAGE SERIES: 5 ultrasound images MEDICATION(S): 1.) 50 mcg Fentanyl IV DEVICE(S): 1.) 6 [place] X30CM [place] locking catheter PROCEDURE : 1. Abscess/hematoma drainage. The risks, benefits and alternatives to the procedure were explained and verbal and written consent w as obtained. The site was prepped in sterile fashion. Full sterile technique was used, including ca p, mask, sterile gloves and gown and a large sterile sheet. Hand hygiene and 2% chlorhexidine and/or betadine/alcohol prep was utilized per protocol for cutaneous antisepsis. The skin and subcutaneous tissues were infiltrated with local anesthetic solution. Ultrasound evaluation of the right breast shows a large, complex fluid collection inferiorly inferome dial to the recently surgerized breast. Again using ultrasound guidance, a 21 gauge micropuncture nee dle was advanced into the more lateral component of the collection near the inferior scar. The 018 wi re was advanced through the needle over which the 3-4 dilator was placed. Through the outer 4 [place] dilator, approximately 3 cc of thick bloody fluid was removed. A 035 wire was advanced through the 4 [place] dilator to facilitate placement of the 6 [place] locking catheter. Again, a few cc of t hick blood was aspirated. The catheter was flushed with a few cc of saline to facilitate aspiration o f a few more cc of fluid. I discussed the situation with the patient's plastic surgeon, Dr. De La Cruz. I explained that the curre nt catheter would be little to decompress the large hematoma due to the consistency of the blood prod ucts. I explained the utility of TPA thrombolysis and in quiet from Dr. De La Cruz consult the surgical bed was dry at the termination of this procedure as there is a risk of rebleeding with probable lysis . He was confident that there were no abnormal bleeding issues during breast reduction and felt it wo uld be okay to proceed. Therefore, the catheter was flushed with 10 mg of TPA in 10 cc of saline. Thi s will be left to dwell for approximately 8 hours at which time the patient will be connected back to accordion drainage. CONCLUSION: 1. Uncomplicated right breast drain placement as above. 2. TPA thrombolysis was initiated in an attempt to liquefy the large postoperative hematoma as the pa tient is quite symptomatic due to the regional pressure. Ibrahima Carrera MD on September 01, 2017 at 15:59 Board Certified Radiologist. This report was verified electronically.
[2017-09-01] MEDS: ONDANSETRON HCL 4 MG/2 ML VIAL IVP PRN (17:28)
[2017-09-01] MEDS: PANTOPRAZOLE SOD 40 MG DELAYED RELEASE TAB PO SCH (21:50)
[2017-09-01] MEDS: ACETAMINOPHEN/HYDROcodone 325 MG/5 MG TAB PO PRN (21:50)
[2017-09-01] MEDS: PRAVASTATIN SOD 40 MG TAB PO SCH (21:51)
[2017-09-02] VITALS (7 sets, daily range): BP systolic 83–106; BP diastolic 50–82; PULSE 60–94; RESP 16–20; TEMP 97.6–98.9; O2SAT 90–96
[2017-09-02] MEDS: AZTREONAM INJ 1,000 MG in SODIUM CHLORIDE 0.9% INJ 100 ML IV SCH ×3 (00:05→16:33)
[2017-09-02] MEDS: CLINDAMYCIN INJ 900 MG in SODIUM CHLORIDE 0.9% INJ 100 ML IV SCH ×3 (03:29→18:09)
[2017-09-02] MEDS: SODIUM CHLOR 0.9% 1000 ML INJ 1,000 ML IV SCH (05:44)
[2017-09-02 06:59] LABS: AUTOMATED NEUTROPHIL # 4.7 TH/MM3 (1.8-7.7); BASOPHIL # 0.1 TH/MM3 (0-0.2); BASOPHIL % 0.8 % (0.0-2.0); EOSINOPHIL # 0.2 TH/MM3 (0-0.4); HEMATOCRIT 29.6 % (35.0-46.0); HEMO FLAGS DIFF FINAL; LYMPH % 21.8 % (9.0-44.0); LYMPHOCYTE # 1.6 TH/MM3 (1.0-4.8); MEAN CELL VOLUME 84.7 FL (80.0-100.0); MEAN CORPUSCULAR HGB CONC 33.1 % (32.0-36.0); MONO % 8.5 % (0.0-8.0); NEUT % 65.9 % (16.0-70.0); PLATELET COUNT 186 TH/MM3 (150-450); RED CELL DISTRIBUTION WIDTH 13.7 % (11.6-17.2); WHITE BLOOD COUNT 7.2 TH/MM3 (4.0-11.0)
[2017-09-02] MEDS: ACETAMINOPHEN/HYDROcodone 325 MG/5 MG TAB PO PRN (07:16)
[2017-09-02 07:19] LABS: BICARBONATE 25.4 MEQ/L (21.0-32.0); POTASSIUM 3.3 MEQ/L (3.5-5.1)
[2017-09-02] MEDS: DOCUSATE SODIUM 50 MG/SENNA 8.6 MG TAB PO SCH ×2 (07:58→21:00)
[2017-09-02] MEDS: SODIUM CHLORIDE 0.9% FLUSH 10 ML FLUSH IV FLUSH SCH ×2 (07:59→21:16)
[2017-09-02] MEDS: MULTIVITAMINS/MINERALS THERAPEUTIC TAB PO SCH (08:02)
[2017-09-02] MEDS: LACTOBACILLUS ACIDOPHILUS TAB PO SCH ×3 (08:02→18:04)
[2017-09-02] MEDS: ONDANSETRON HCL 4 MG/2 ML VIAL IVP PRN ×2 (08:06→14:39)
--- NOTE | 2017-09-02 09:31 | HHI.PR ---
Subjective Remarks Complains of headache, did not receive imitrex. Also with nausea, not relieved much by zofran. Constipation resolved. Pain in her right breast is fairly controlled by meds, has breakthrough pain. With fevers and chills. No n/v/d/c. Objective Vitals Vital Signs Date Time Temp Pulse Resp B/P (MAP) Pulse Ox O2 Delivery O2 Flow Rate FiO2 09/02/17 08:41 98.1 82 18 105/82 (90) 92 09/02/17 04:00 98.1 75 18 96/58 (71) 96 09/02/17 00:00 97.6 60 18 83/50 (61) 96 09/01/17 21:15 78 09/01/17 20:00 98.0 95 18 109/61 (77) 94 09/01/17 20:00 98.0 95 18 109/61 (77) 94 09/01/17 16:00 99.1 90 16 101/66 (78) 96 09/01/17 12:20 86 18 99/63 (75) 95 09/01/17 11:30 81 20 102/68 (79) 92 I/O 09/01/17 09/01/17 09/01/17 09/02/17 09/02/17 09/02/17 07:00 15:00 23:00 07:00 15:00 23:00 Intake Total 360 ml 750 ml Output Total 3 ml 200 ml 80 ml Balance 357 ml -200 ml 750 ml -80 ml Intake Oral 360 ml 750 ml Output Urine Total 3 ml Drainage Total 200 ml 80 ml # Voids 1 2 2 Result Diagram: 09/02/17 0639 09/02/17 0639 Imaging Last Impressions Abscess Drainage X-Ray 09/01/17 0000 Signed Impressions: Service Date/Time: Friday, September 01, 2017 11:45 - CONCLUSION: 1. Uncomplicated right breast drain placement as above. 2. TPA thrombolysis was initiated in an attempt to liquefy the large postoperative hematoma as the patient is quite symptomatic due to the regional pressure. Ibrahima Carrera MD Chest X-Ray 08/30/171936 Signed Impressions: Service Date/Time: Wednesday, August 30, 2017 19:46 - CONCLUSION: The lungs are clear. Yaya Mercedes MD Abdomen/Pelvis CT 10/1/17 1937 Signed Impressions: Service Date/Time: Wednesday, August 30, 2017 20:00 - CONCLUSION: 1. No dilated loops of small or large bowel. 2. Multiple soft tissue densities in the right anterior and lateral chest subcutaneous tissues. Recommend correlation with clinical and surgical history. Yaya Mercedes MD Breast Ultrasound 08/30/17 0000 Signed Impressions: Service Date/Time: Wednesday, August 30, 2017 22:26 - CONCLUSION: Greater than 7 cm fluid collection in the right breast post reduction mammoplasty. Differential considerations include seroma and abscess. No increased flow by color Doppler about the fluid collection. Yaya Mercedes MD Objective Remarks GENERAL: Well-developed, well-nourished, in no acute distress. alert and orientated CARDIAC: Regular rhythm, regular rate. S1/S2 are heard. No murmurs gallops or rubs. LUNGS: Clear to auscultation bilaterally. No wheeze, rhonchi or rales. No use of accessory muscles on inspiration or expiration. ABDOMEN: Soft, nontender. Nondistended. Bowel sounds heard in all 4 quadrants. No organomegaly or masses. Negative rebound, negative guarding EXTREMITIES: No edema, pulses are equal bilaterally. No cyanosis or clubbing NEUROLOGY: Mood and affect appear appropriate. Cranial nerves II through XII grossly intact. Muscle strength 5/5 in upper and lower extremities bilaterally. Deep tendon reflexes are 2+ in upper and lower extremities bilaterally. BREAST: Left breast appears to have nice healing incision. Right breast with pain on palpation of the medial aspect. There is a fullness enlargement of the medial aspect of the breast. There is ecchymosis noted inferior to the breast in the right flank. A/P Problem List: (1) Severe sepsis ICD Code: A41.9 - Sepsis, unspecified organism; R65.20 - Severe sepsis without septic shock (2) Infection of right breast ICD Code: N61.0 - Mastitis without abscess Status: Acute Assessment and Plan Severe Sepsis Patient meets criteria with tachycardia, febrile illness, lactic acidosis, hypotension, possible right breast postsurgical infection Patient was given vancomycin emergency department with possible allergic reaction. Pruritus improved after Benadryl Patient continued on Azactam, clindamycin Lactic acid level has returned to normal Blood cultures are pending at this time urinalysis was unremarkable, chest x-ray does not indicate any pulmonary etiology Will need further evaluations to rule out any other etiology of her sepsis Right breast postsurgical fluid collection Etiologies could include hematoma, seroma, infection Per Dr. Antonio, her plastic surgeon, recommended fluid aspiration. Interventional Radiology consulted for fluid aspiration. S/p drain placed and aspiration of 200 cc bloody fluid, patient treated with TPA, drain in place. Hank Gómez IR, appreciate recommendations. Pain control per pain scale. Add morphine IV for breakthrough pain Headache/migraine: Imitrex as need. Constipation: Stool softeners/laxatives as need. Nausea: Antiemetics as need. On zofran not controlled, add phenergan, compazine DVT prevention Sequential compression devices Discussed with the patient, nurse, family at bedside Sandra Ogden MD Sep 02, 2017 09:31
[2017-09-02] MEDS: SUMAtriptan SUCCINATE 25 MG TAB PO PRN ×2 (11:41→18:04)
[2017-09-02] MEDS: MORPHINE SULFATE 4 MG/ML INJ IV PUSH PRN ×2 (11:42→21:16)
--- NOTE | 2017-09-02 12:40 | HHI.IDPN ---
Subjective Subjective Remarks 47 year old female admitted for F/C. S/P breast reduction, developed R breast pain x 1 day. Work-up showed fluid collection in R breast. Underwent drainage procedure of hematoma, got TPA in the hematoma. Notes reviewed Temps better Still sore but better C/S negative x 24 hours Has been on Abx sonce 08/30 Antibiotics Clindamycin Azactam Lines PIV Past Medical History Hypertension Diabetes Hyperlipidemia Anxiety/depression Anemia Hiatal hernia Gastroesophageal reflux Past Surgical History LAP-BAND procedure Juvencio-en-y procedure Cholecystectomy Hysterectomy Allergies: Coded Allergies: amoxicillin (Unverified Adverse Reaction, Severe, SEVERE VOMITING, 07/14/17 ) clavulanic acid (Unverified Adverse Reaction, Severe, SEVERE VOMITING, ) vancomycin (Verified Adverse Reaction, Intermediate, Itching, 09/01/17) Red man syndrome reaction ITCHING STARTED AFTER RECIEVING APPROX 50CC VANCO IV Objective . Vital Signs Date Time Temp Pulse Resp B/P (MAP) Pulse Ox O2 Delivery O2 Flow Rate FiO2 09/02/17 12:21 98.0 74 18 106/67 (80) 92 09/02/17 08:41 98.1 82 18 105/82 (90) 92 09/02/17 04:00 98.1 75 18 96/58 (71) 96 09/02/17 00:00 97.6 60 18 83/50 (61) 96 09/01/17 21:15 78 09/01/17 20:00 98.0 95 18 109/61 (77) 94 09/01/17 20:00 98.0 95 18 109/61 (77) 94 09/01/17 16:00 99.1 90 16 101/66 (78) 96 . Laboratory Tests Test 09/01/17 16:27 09/02/17 06:39 Erythrocyte Sedimentation Rate 40 mm/hr White Blood Count 7.2 TH/MM3 Red Blood Count 3.50 MIL/MM3 Hemoglobin 9.8 GM/DL Hematocrit 29.6 % Mean Corpuscular Volume 84.7 FL Mean Corpuscular Hemoglobin 28.0 PG Mean Corpuscular Hemoglobin Concent 33.1 % Red Cell Distribution Width 13.7 % Platelet Count 186 TH/MM3 Mean Platelet Volume 8.7 FL Neutrophils (%) (Auto) 65.9 % Lymphocytes (%) (Auto) 21.8 % Monocytes (%) (Auto) 8.5 % Eosinophils (%) (Auto) 3.0 % Basophils (%) (Auto) 0.8 % Neutrophils # (Auto) 4.7 TH/MM3 Lymphocytes # (Auto) 1.6 TH/MM3 Monocytes # (Auto) 0.6 TH/MM3 Eosinophils # (Auto) 0.2 TH/MM3 Basophils # (Auto) 0.1 TH/MM3 CBC Comment DIFF FINAL Differential Comment Laboratory Tests Test 09/01/17 13:49 09/02/17 06:39 C-Reactive Protein 10.00 MG/DL Blood Urea Nitrogen 6 MG/DL Creatinine 0.70 MG/DL Random Glucose 84 MG/DL Calcium Level 7.5 MG/DL Sodium Level 142 MEQ/L Potassium Level 3.3 MEQ/L Chloride Level 110 MEQ/L Carbon Dioxide Level 25.4 MEQ/L Anion Gap 7 MEQ/L Estimat Glomerular Filtration Rate 89 ML/MIN Microbiology Date/Time Source Procedure Growth Status 08/30/17 20:30 Blood Peripheral Aerobic Blood Culture - Preliminary NO GROWTH IN 3 DAYS Resulted 08/30/17 20:30 Blood Peripheral Anaerobic Blood Culture - Preliminary NO GROWTH IN 3 DAYS Resulted 08/30/17 20:15 Blood Peripheral Aerobic Blood Culture - Preliminary NO GROWTH IN 3 DAYS Resulted 08/30/17 20:15 Blood Peripheral Anaerobic Blood Culture - Preliminary NO GROWTH IN 3 DAYS Resulted 09/01/17 11:21 Fluid Other Gram Stain - Final Resulted 09/01/17 11:21 Fluid Other Body Fluid Culture - Preliminary NO GROWTH IN 24 HOURS. Resulted Imaging Last Impressions Abscess Drainage X-Ray 09/01/17 0000 Signed Impressions: Service Date/Time: Friday, September 01, 2017 11:45 - CONCLUSION: 1. Uncomplicated right breast drain placement as above. 2. TPA thrombolysis was initiated in an attempt to liquefy the large postoperative hematoma as the patient is quite symptomatic due to the regional pressure. Ibrahima Carrera MD Chest X-Ray 08/30/171936 Signed Impressions: Service Date/Time: Wednesday, August 30, 2017 19:46 - CONCLUSION: The lungs are clear. Yaya Mercedes MD Abdomen/Pelvis CT 08/30/171936 Signed Impressions: Service Date/Time: Wednesday, August 30, 2017 20:00 - CONCLUSION: 1. No dilated loops of small or large bowel. 2. Multiple soft tissue densities in the right anterior and lateral chest subcutaneous tissues. Recommend correlation with clinical and surgical history. Yaya Mercedes MD Breast Ultrasound 08/30/17 0000 Signed Impressions: Service Date/Time: Wednesday, August 30, 2017 22:26 - CONCLUSION: Greater than 7 cm fluid collection in the right breast post reduction mammoplasty. Differential considerations include seroma and abscess. No increased flow by color Doppler about the fluid collection. Yaya Mercedes MD Physical Exam GENERAL: awake and alert, not in respiratory distress. SKIN: Warm and dry. No generalized rash, no ecchymoses and no evidence of embolic lesions. HEAD: Atraumatic. Normocephalic. No temporal wasting, or tenderness. EYES: [place] conjunctiva. No petechia or hemorrhage. Pupils equal, round and reactive to light. Extraocular movements full and intact. No scleral icterus. No injection or drainage. EARS, NOSE AND THROAT: Nose without bleeding or purulent nasal discharge. Mucous membranes pink and moist. No oral lesions noted. NECK: Trachea midline. Supple and not tender, no meningeal signs CARDIOVASCULAR: Regular rate and rhythm. Tachycardic. No murmurs, rubs or gallops heard RESPIRATORY: Clear to auscultation. Breath sounds equal bilaterally. No rales , wheezing or rhonchi BREAST: L breast - incision dry, no redness, no induration, no ecchymoses. R breast - incision is dry, no redness, tender to touch, has ecchymoses under the breast, area is softer, has drain in place, with old blood. NO erythema ABDOMEN: Soft, non-tender, nondistended. Bowel sounds present and normoactive. No guarding. No rebound. No organomegaly. EXTREMITIES: No clubbing, cyanosis, or edema.No joint effusion, has good ROM. No calf tenderness. Well perfused and warm. NEUROLOGICAL: Non-focal. PSYCHIATRIC: Normal affect, calm and cooperative. LINE: No evidence of infection Assessment & Plan Remarks IMPRESSION Sepsis, with high fevers, chills, tachycardia, source? - recent jojo breast reduction, has fluid collection in R breast and findings of hematoma, ?infected hematoma, seroma S/P bilateral breast reduction Likely red man syndrome reaction to IV Vancomycin RECOMMENDATION Continue Clinda and Azactam Follow C/S and adjust Abx Monitor temps Monitor progress Culture may be negative - ?not infected hematoma, or ?negative culture because of previous Abx Explained plan to patient and Answered all their questions Perla Zambrano MD Sep 02, 2017 12:40
[2017-09-02] MEDS: PRAVASTATIN SOD 40 MG TAB PO SCH (21:19)
[2017-09-02] MEDS: PANTOPRAZOLE SOD 40 MG DELAYED RELEASE TAB PO SCH (21:19)
[2017-09-03] VITALS (7 sets, daily range): BP systolic 88–106; BP diastolic 55–62; PULSE 64–82; RESP 16–20; TEMP 98.2–98.7; O2SAT 93–97
[2017-09-03] MEDS: AZTREONAM INJ 1,000 MG in SODIUM CHLORIDE 0.9% INJ 100 ML IV SCH ×3 (00:16→16:17)
[2017-09-03] MEDS: CLINDAMYCIN INJ 900 MG in SODIUM CHLORIDE 0.9% INJ 100 ML IV SCH ×3 (04:33→18:04)
[2017-09-03] MEDS: LACTOBACILLUS ACIDOPHILUS TAB PO SCH ×3 (08:02→18:04)
[2017-09-03] MEDS: MULTIVITAMINS/MINERALS THERAPEUTIC TAB PO SCH (08:02)
[2017-09-03] MEDS: SUMAtriptan SUCCINATE 25 MG TAB PO PRN (08:03)
[2017-09-03] MEDS: DOCUSATE SODIUM 50 MG/SENNA 8.6 MG TAB PO SCH ×2 (08:03→20:26)
[2017-09-03] MEDS: SODIUM CHLORIDE 0.9% FLUSH 10 ML FLUSH IV FLUSH SCH ×2 (08:03→20:26)
[2017-09-03] MEDS: ONDANSETRON HCL 4 MG/2 ML VIAL IVP PRN ×2 (08:12→18:20)
--- NOTE | 2017-09-03 09:30 | RADRPT ---
EXAM DATE/TIME: 09/03/2017 08:50 [facility] COMPARISON: US BREAST RIGHT, August 30, 2017, 22:26. INDICATIONS : Check for fluid collection. No drainage from drain last night. MEDICAL HISTORY : Hypercholesterolemia. Gastroesophageal reflux disease. Pancreatitis. Migraines. Hiatal hernia. Breast lumps. Renal cysts. Cervical disc buldging. Cervical cancer. Anemia. Measles. Diabetes. Depression. Anxiety. . SURGICAL HISTORY : Tonsillectomy. Cholecystectomy. Hysterectomy. Lap Band. Gastric bypass. Left hand surgery. Coronary a rtery disease. ENCOUNTER: Subsequent ACUITY: 1 week PAIN SCORE: 9/10 LOCATION: Right breast. FINDINGS: There is a focal complex fluid collection measuring 4.9 x 6.8 x 2.5 cm in diameter at the 5: 00 position 7 cm from the nipple.. Areas of low level internal echogenicity. A drain is in place exte nding through the fluid collection. There was no color flow in the collection or surrounding tissue. On the prior study the collection measures 7.4 x 2.3 x 6.6 cm. CONCLUSION: Interval decrease in the size of complex fluid collection with drain in place. Martinez Johnson MD on September 03, 2017 at 9:25 Board Certified Radiologist. This report was verified electronically.
[2017-09-03] MEDS ORDERED: ALTEPLASE RECOMBINANT 2 MG VIAL ONE ×2 (11:34→13:15)
--- NOTE | 2017-09-03 11:38 | HHI.PR ---
Subjective Remarks Still with nausea, did not vomit. Patient says she had bariatric surgery with Dr Najera and she wants to see Dr Najera as she is with persistent nausea. Patient still with headache, increase imitrex to bid No fevr or chills. Pain is fairly controlled by meds. Gettign TPA Objective Vitals Vital Signs Date Time Temp Pulse Resp B/P (MAP) Pulse Ox O2 Delivery O2 Flow Rate FiO2 09/03/17 08:44 98.3 82 16 106/61 (76) 96 09/03/17 06:46 98.5 65 18 95/59 (71) 94 09/03/17 01:35 98.7 65 18 88/56 (67) 93 09/02/17 21:31 90 09/02/17 20:00 98.9 89 20 100/59 (73) 90 09/02/17 17:00 98.6 94 16 104/66 (79) 94 09/02/17 12:21 98.0 74 18 106/67 (80) 92 I/O 09/02/17 09/02/17 09/02/17 09/03/17 09/03/17 09/03/17 07:00 15:00 23:00 07:00 15:00 23:00 Intake Total 686 ml 1100 ml Output Total 80 ml 40 ml 30 ml 0 ml Balance -80 ml 646 ml 1070 ml 0 ml Intake Oral 480 ml IV Total 206 ml 1100 ml Drainage Total 80 ml 40 ml 30 ml 0 ml # Voids 2 4 # Bowel Movements 1 Result Diagram: 09/02/17 0639 09/02/17 0639 Imaging Last Impressions Breast Ultrasound 09/03/17 0751 Signed Impressions: Service Date/Time: August 08:50 - CONCLUSION: Interval decrease in the size of complex fluid collection with drain in place. Martinez Johnson MD Abscess Drainage X-Ray 09/01/17 0000 Signed Impressions: Service Date/Time: Friday, September 01, 2017 11:45 - CONCLUSION: 1. Uncomplicated right breast drain placement as above. 2. TPA thrombolysis was initiated in an attempt to liquefy the large postoperative hematoma as the patient is quite symptomatic due to the regional pressure. Ibrahima Carrera MD Chest X-Ray 08/30/17 1936 Signed Impressions: Service Date/Time: Wednesday, August 30, 2017 19:46 - CONCLUSION: The lungs are clear. Yaya Mercedes MD Abdomen/Pelvis CT 08/30/171936 Signed Impressions: Service Date/Time: Wednesday, August 30, 2017 20:00 - CONCLUSION: 1. No dilated loops of small or large bowel. 2. Multiple soft tissue densities in the right anterior and lateral chest subcutaneous tissues. Recommend correlation with clinical and surgical history. Yaya Mercedes MD Objective Remarks GENERAL: Well-developed, well-nourished, in no acute distress. alert and orientated CARDIAC: Regular rhythm, regular rate. S1/S2 are heard. No murmurs gallops or rubs. LUNGS: Clear to auscultation bilaterally. No wheeze, rhonchi or rales. No use of accessory muscles on inspiration or expiration. ABDOMEN: Soft, nontender. Nondistended. Bowel sounds heard in all 4 quadrants. No organomegaly or masses. Negative rebound, negative guarding EXTREMITIES: No edema, pulses are equal bilaterally. No cyanosis or clubbing NEUROLOGY: Mood and affect appear appropriate. Cranial nerves II through XII grossly intact. Muscle strength 5/5 in upper and lower extremities bilaterally. Deep tendon reflexes are 2+ in upper and lower extremities bilaterally. BREAST: Left breast appears to have nice healing incision. Right breast with pain on palpation of the medial aspect. There is a fullness enlargement of the medial aspect of the breast. There is ecchymosis noted inferior to the breast in the right flank. A/P Problem List: (1) Severe sepsis ICD Code: A41.9 - Sepsis, unspecified organism; R65.20 - Severe sepsis without septic shock (2) Infection of right breast ICD Code: N61.0 - Mastitis without abscess Status: Acute Assessment and Plan 47 year old female admitted for F/C. S/P breast reduction, developed R breast pain x 1 day. Work-up showed fluid collection in R breast. Underwent drainage procedure of hematoma, got TPA in the hematoma. US repeat shows small collection hematoma , IR ff Severe Sepsis Patient meets criteria with tachycardia, febrile illness, lactic acidosis, hypotension, possible right breast postsurgical infection Patient was given vancomycin emergency department with possible allergic reaction. Pruritus improved after Benadryl Patient continued on Azactam, clindamycin Lactic acid level has returned to normal Blood cultures are pending at this time urinalysis was unremarkable, chest x-ray does not indicate any pulmonary etiology Will need further evaluations to rule out any other etiology of her sepsis Right breast postsurgical fluid collection Etiologies could include hematoma, seroma, infection Per Dr. Antonio, her plastic surgeon, recommended fluid aspiration. Interventional Radiology consulted for fluid aspiration. S/p drain placed and aspiration of 200 cc bloody fluid, patient treated with TPA, drain in place. Discusse marnie Gómez IR, appreciate recommendations. US right breast interval decrease, however needs more TPA per IR 09/03/17 Pain control per pain scale. Add morphine IV for breakthrough pain Headache/migraine: Imitrex as need. Constipation: Stool softeners/laxatives as need. Nausea: Antiemetics as need.On zofran not controlled, add phenergan, compazine, phenerhan . Patient asking to see her surgeon Dr Najera as she rue en y . Consult Dr Najera DVT prevention Sequential compression devices Discussed with the patient, nurse, family at bedside Sandra Ogden MD Sep 03, 2017 11:37
[2017-09-03] MEDS ORDERED: SUMAtriptan SUCCINATE 25 MG TAB PO PRN (12:00)
[2017-09-03] MEDS ORDERED: PROCHLORPERAZINE 25 MG SUPP RECTAL PRN (13:30)
[2017-09-03] MEDS ORDERED: METOCLOPRAMIDE HCL 10 MG/2 ML VIAL IV PUSH PRN (13:30)
[2017-09-03] MEDS ORDERED: NALOXONE HCL 0.4 MG/ML AMP IV PUSH PRN (13:30)
[2017-09-03] MEDS ORDERED: PROMETHAZINE HCL 25 MG TAB PO PRN (13:45)
[2017-09-03 18:10] LABS: BICARBONATE 30.4 MEQ/L (21.0-32.0); POTASSIUM 3.6 MEQ/L (3.5-5.1)
[2017-09-03] MEDS ORDERED: SCOPOLAMINE 1.5 MG PATCH T-DERMAL ONE (18:30)
[2017-09-03] MEDS: PRAVASTATIN SOD 40 MG TAB PO SCH (20:25)
[2017-09-03] MEDS: PANTOPRAZOLE SOD 40 MG DELAYED RELEASE TAB PO SCH (20:25)
[2017-09-03] MEDS: METOCLOPRAMIDE HCL SYRUP 10 MG/10 ML UDC PO SCH (20:25)
[2017-09-03] MEDS: BACITRACIN TOP OINT 15 GM TUBE TOPICAL SCH (20:26)
[2017-09-03] MEDS: MORPHINE SULFATE 4 MG/ML INJ IV PUSH PRN (20:27)
[2017-09-04] VITALS: BP 84/53; PULSE 66; RESP 18; TEMP 98; O2SAT 95
[2017-09-04] MEDS: AZTREONAM INJ 1,000 MG in SODIUM CHLORIDE 0.9% INJ 100 ML IV SCH ×2 (00:11→08:59)
[2017-09-04] MEDS: METOCLOPRAMIDE HCL SYRUP 10 MG/10 ML UDC PO SCH ×3 (00:17→12:00)
[2017-09-04 01:25] VITALS: BP 87/57
[2017-09-04 04:00] VITALS: BP 86/54; PULSE 66; RESP 18; TEMP 98.8; O2SAT 92
[2017-09-04] MEDS: CLINDAMYCIN INJ 900 MG in SODIUM CHLORIDE 0.9% INJ 100 ML IV SCH ×2 (04:18→12:51)
[2017-09-04 06:27] VITALS: BP 93/55
[2017-09-04 08:08] LABS: AUTOMATED NEUTROPHIL # 2.9 TH/MM3 (1.8-7.7); BASOPHIL % 0.9 % (0.0-2.0); EOSINOPHIL # 0.2 TH/MM3 (0-0.4); EOSINOPHIL % 4.4 % (0.0-4.0); HEMO FLAGS DIFF FINAL; LYMPH % 27.6 % (9.0-44.0); LYMPHOCYTE # 1.5 TH/MM3 (1.0-4.8); MEAN CELL VOLUME 84.3 FL (80.0-100.0); MEAN CORPUSCULAR HEMOGLOBIN 28.2 PG (27.0-34.0); MEAN CORPUSCULAR HGB CONC 33.4 % (32.0-36.0); MONO % 11.3 % (0.0-8.0); NEUT % 55.8 % (16.0-70.0); PLATELET COUNT 207 TH/MM3 (150-450); RED BLOOD COUNT 3.33 MIL/MM3 (4.00-5.30); RED CELL DISTRIBUTION WIDTH 13.7 % (11.6-17.2); WHITE BLOOD COUNT 5.3 TH/MM3 (4.0-11.0)
[2017-09-04 08:30] LABS: BICARBONATE 27.8 MEQ/L (21.0-32.0); POTASSIUM 3.5 MEQ/L (3.5-5.1)
[2017-09-04 08:54] VITALS: BP 85/54; PULSE 78; RESP 18; TEMP 98.9; O2SAT 92
[2017-09-04] MEDS: DOCUSATE SODIUM 50 MG/SENNA 8.6 MG TAB PO SCH (09:00)
[2017-09-04] MEDS: LACTOBACILLUS ACIDOPHILUS TAB PO SCH ×2 (09:00→12:55)
[2017-09-04] MEDS: MULTIVITAMINS/MINERALS THERAPEUTIC TAB PO SCH (09:00)
[2017-09-04] MEDS: SODIUM CHLORIDE 0.9% FLUSH 10 ML FLUSH IV FLUSH SCH (09:01)
[2017-09-04] MEDS: BACITRACIN TOP OINT 15 GM TUBE TOPICAL SCH (09:01)
[2017-09-04 12:23] VITALS: BP 96/53; PULSE 88; RESP 18; TEMP 98; O2SAT 94
--- NOTE | 2017-09-04 12:37 | PD.RAD ---
Post Procedure Progress Note Pre Procedure Diagnosis: (1) Post surgical hematoma right breast Post Procedure Diagnosis: (1) Post surgical hematoma right breast Procedure Date: Sep 04, 2017 Supervising Radiologist: Ibrahima Carrera Proceduralist/Assist: Marsha Whitman, RT(R), Javi Henson, RT(R) Plan of Activity Patient to Unit: Nursing Unit Patient Condition: Good See PACS Report for procedural detail/treatment Drainage Procedure Procedure 1 Imaging Guidance: Ultrasound Procedure: Removal, Evaluation (No significant collection remaining post second round of TPA. Tube removed) Ibrahima Carrera MD Sep 04, 2017 12:37
--- NOTE | 2017-09-04 12:51 | HHI.PR ---
Subjective Subjective Notes Sitting up in chair Nausea much improved, was able to tolerate breakfast Objective Vitals/I&O Vital Signs Date Time Temp Pulse Resp B/P (MAP) Pulse Ox O2 Delivery O2 Flow Rate FiO2 09/04/17 12:23 98.0 88 18 96/53 (67) 94 09/04/17 08:54 98.9 78 18 85/54 (64) 92 09/04/17 06:27 93/55 (68) 09/04/17 04:00 98.8 66 18 86/54 (65) 92 09/04/17 01:25 87/57 (67) 09/04/17 00:00 98.0 66 18 84/53 (63) 95 09/03/17 23:00 70 09/03/17 20:00 98.5 79 20 102/55 (71) 97 09/03/17 16:52 98.4 65 17 106/62 (77) 95 09/03/17 14:15 98.2 64 18 96/56 (69) 96 Vital Signs Date Time Temp Pulse Resp B/P (MAP) Pulse Ox O2 Delivery O2 Flow Rate FiO2 09/04/17 12:23 98.0 88 18 96/53 (67) 94 Labs Laboratory Tests Test 09/03/17 16:27 09/04/17 07:38 Blood Urea Nitrogen 8 7 Creatinine 0.70 0.61 Random Glucose 123 98 Calcium Level 8.1 7.8 Sodium Level 142 144 Potassium Level 3.6 3.5 Chloride Level 106 109 Carbon Dioxide Level 30.4 27.8 Anion Gap 6 7 Estimat Glomerular Filtration Rate 89 105 White Blood Count 5.3 Red Blood Count 3.33 Hemoglobin 9.4 Hematocrit 28.0 Mean Corpuscular Volume 84.3 Mean Corpuscular Hemoglobin 28.2 Mean Corpuscular Hemoglobin Concent 33.4 Red Cell Distribution Width 13.7 Platelet Count 207 Mean Platelet Volume 8.8 Neutrophils (%) (Auto) 55.8 Lymphocytes (%) (Auto) 27.6 Monocytes (%) (Auto) 11.3 Eosinophils (%) (Auto) 4.4 Basophils (%) (Auto) 0.9 Neutrophils # (Auto) 2.9 Lymphocytes # (Auto) 1.5 Monocytes # (Auto) 0.6 Eosinophils # (Auto) 0.2 Basophils # (Auto) 0.0 CBC Comment DIFF FINAL Differential Comment Date/Time Source Procedure Growth Status 08/30/17 20:30 Blood Peripheral Aerobic Blood Culture - Final NO GROWTH IN 5 DAYS Complete 08/30/17 20:30 Blood Peripheral Anaerobic Blood Culture - Final NO GROWTH IN 5 DAYS Complete 09/01/17 11:21 Fluid Other Gram Stain - Final Complete 09/01/17 11:21 Fluid Other Body Fluid Culture - Final NO GROWTH IN 72 HRS.--AEROBICALLY OR ... Complete Radiology Last Impressions Breast Ultrasound 09/03/17 0751 Signed Impressions: Service Date/Time: August 08:50 - CONCLUSION: Interval decrease in the size of complex fluid collection with drain in place. Martinez Johnson MD Abscess Drainage X-Ray 09/01/17 0000 Signed Impressions: Service Date/Time: Friday, September 01, 2017 11:45 - CONCLUSION: 1. Uncomplicated right breast drain placement as above. 2. TPA thrombolysis was initiated in an attempt to liquefy the large postoperative hematoma as the patient is quite symptomatic due to the regional pressure. Ibrahima Carrera MD Chest X-Ray 08/30/171936 Signed Impressions: Service Date/Time: Wednesday, August 30, 2017 19:46 - CONCLUSION: The lungs are clear. Yaya Mercedes MD Abdomen/Pelvis CT 08/30/171936 Signed Impressions: Service Date/Time: Wednesday, August 30, 2017 20:00 - CONCLUSION: 1. No dilated loops of small or large bowel. 2. Multiple soft tissue densities in the right anterior and lateral chest subcutaneous tissues. Recommend correlation with clinical and surgical history. Yaya Mercedes MD Cardiovascular: Regular Lungs: Clear Abdomen: Non-tender Extremities: Perfused A/P Assessment and Plan 47yo F with PSH of R[place] admitted with severe sepsis and breast abscess, we were consulted due to persistent nausea -Continue to increase fluids and diet as tolerated -Will give scopolamine and ondansetron for use as outpatient The exam, history, and the medical decision-making described in the above note were completed with the assistance of the mid-level provider. I reviewed and agree with the findings presented. I attest that I had a [id number] encounter with the patient on the same day, and personally performed and documented my assessment and findings in the medical record. Discharge Planning D/C home depending on medical course, essentially clear from bariatric standpoint David Cervantes Sep 04, 2017 12:51 Saurabh King MD Sep 23, 2017 12:41
[2017-09-04] MEDS ORDERED: SCOP1PAT2 T-DERMAL (12:53)
[2017-09-04] MEDS ORDERED: ONDA4TAB7 SL (12:53)
[2017-09-04] MEDS ORDERED: CLIN1CAP6 PO (14:45)
[2017-09-04] MEDS ORDERED: LEVA750T9 PO (14:45)
--- NOTE | 2017-09-04 14:45 | HHI.DS ---
Discharge Summary Admission Date Aug 30, 2017 at 22:08 Discharge Date: Sep 04, 2017 Admitting Diagnosis sepsis, breast infection (1) Severe sepsis ICD Code: A41.9 - Sepsis, unspecified organism; R65.20 - Severe sepsis without septic shock Diagnosis: Principal (2) Infection of right breast ICD Code: N61.0 - Mastitis without abscess Diagnosis: Principal Status: Acute Procedures Mature hematoma drainage by IR ,has TPA 2x. Brief History - From Admission Written by Devin Mascorro, acting as scribe for Dr. Tobar on 08/31/17 at 09 :46. 47-year-old female with known history of hypertension, hyperlipidemia , anxiety, depression, recent breast reduction surgery who presented to hospital because of fever, chills, nausea, fatigue. Patient states that she was doing well and in normal state of health until yesterday when she was eating breakfast and started developing some bad cramps in her abdomen. She stopped eating the cramping went away. She felt very cold so she laid down. He checked her temperature is 103.5. She indicated that she was significantly fatigued had minimal sore throat, neck pain, nausea, diarrhea. She states that she called her physician and was told to go to the ER for evaluation. The patient sat up she noticed significant right breast pain. When she got to the emergency department they noticed that there is some blood oozing from her incision site of her right breast. She still continued to have pain in her right breast until she laid down and the pain would improve. At the present time she is experiencing significant headache, neck ache, burning sensation in her eyes, lightheadedness. Patient does have history of migraines, however she states that this is a different discomfort. Patient has recent history of breast reduction surgery on August 19, [address] Antonio. As indicated that she have the drains out on the . She was evaluated again on August 26 and was doing well. Was instructed to continue Bactroban on the incision sites. Patient did come to emergency department and was found to have criteria for severe sepsis. With fever, tachycardia, CT scan and ultrasound indicating significant fluid collection in the right breast. Consideration would include seroma and abscess. Patient was recommended by the ER physician admission the hospital for IV antibiotics and continued management. Patient states that she was given antibiotic in emergency department which by records indicate vancomycin and she developed significant itching of her entire body. Patient was given Benadryl and she improved. CBC/BMP: 09/04/17 0738 09/04/17 0738 Significant Findings Laboratory Tests Test 09/01/17 16:27 09/02/17 06:39 09/03/17 16:27 09/04/17 07:38 Erythrocyte Sedimentation Rate 40 mm/hr (0-20) Red Blood Count 3.50 MIL/MM3 (4.00-5.30) 3.33 MIL/MM3 (4.00-5.30) Hemoglobin 9.8 GM/DL (11.6-15.3) 9.4 GM/DL (11.6-15.3) Hematocrit 29.6 % (35.0-46.0) 28.0 % (35.0-46.0) Monocytes (%) (Auto) 8.5 % (0.0-8.0) 11.3 % (0.0-8.0) Blood Urea Nitrogen 6 MG/DL (7-18) Calcium Level 7.5 MG/DL (8.5-10.1) 8.1 MG/DL (8.5-10.1) 7.8 MG/DL (8.5-10.1) Potassium Level 3.3 MEQ/L (3.5-5.1) Chloride Level 110 MEQ/L (98-107) 109 MEQ/L (98-107) Random Glucose 123 MG/DL (74-106) Eosinophils (%) (Auto) 4.4 % (0.0-4.0) Imaging Last Impressions Breast Ultrasound 09/03/17 0751 Signed Impressions: Service Date/Time: August 08:50 - CONCLUSION: Interval decrease in the size of complex fluid collection with drain in place. Martinez Johnson MD Abscess Drainage X-Ray 09/01/17 0000 Signed Impressions: Service Date/Time: Friday, September 01, 2017 11:45 - CONCLUSION: 1. Uncomplicated right breast drain placement as above. 2. TPA thrombolysis was initiated in an attempt to liquefy the large postoperative hematoma as the patient is quite symptomatic due to the regional pressure. Ibrahima Carrera MD Chest X-Ray 08/30/171936 Signed Impressions: Service Date/Time: Wednesday, August 30, 2017 19:46 - CONCLUSION: The lungs are clear. Yaya Mercedes MD Abdomen/Pelvis CT 08/30/171936 Signed Impressions: Service Date/Time: Wednesday, August 30, 2017 20:00 - CONCLUSION: 1. No dilated loops of small or large bowel. 2. Multiple soft tissue densities in the right anterior and lateral chest subcutaneous tissues. Recommend correlation with clinical and surgical history. Yaya Mercedes MD PE at Discharge GENERAL: Well-developed, well-nourished, in no acute distress. alert and orientated CARDIAC: Regular rhythm, regular rate. S1/S2 are heard. No murmurs gallops or rubs. LUNGS: Clear to auscultation bilaterally. No wheeze, rhonchi or rales. No use of accessory muscles on inspiration or expiration. ABDOMEN: Soft, nontender. Nondistended. Bowel sounds heard in all 4 quadrants. No organomegaly or masses. Negative rebound, negative guarding EXTREMITIES: No edema, pulses are equal bilaterally. No cyanosis or clubbing NEUROLOGY: Mood and affect appear appropriate. Cranial nerves II through XII grossly intact. Muscle strength 5/5 in upper and lower extremities bilaterally. Deep tendon reflexes are 2+ in upper and lower extremities bilaterally. BREAST: Left breast appears to have nice healing incision. Right breast with pain on palpation of the medial aspect. There is a fullness enlargement of the medial aspect of the breast. There is ecchymosis noted inferior to the breast in the right flank. Drain in places with no drainage, IR will pull drains. Pt update on day of discharge Seen earlier today. Feels better. Nausea improved with scopol patch. Patient pain is controlled. says he doesn't want to take narcotics and doesn't need a prescription for home. No fever or chills. No v/d/c. Feels comfortable to go home. Discussed with the patient discharge plan. Hospital Course 47 year old female admitted for F/C. S/P breast reduction, developed R breast pain x 1 day. Work-up showed fluid collection in R breast. Underwent drainage procedure of hematoma, got TPA in the hematoma. US repeat shows small collection hematoma , IR ff Received TPA and had drain placed. Patient was also treated with IV abx and ID was also consulted. Blood cx neg x 5 days, fluid cultures negative. Drains were removed by IR. Discussed with Dr Carrera IR cleared patient for DC. Discussed the case with Dr Antonio her plastic surgeon at [facility] will see the patient in his office on Thursday09/07/17. Patient also with nausea and previous surgery by Dr Najera patient requiring to see Dr Fang gen surg, added scopolamine patch as patient with intarctable nausea. She was also treated for migraine headache during the stay. Also discussed with Dr Zambrano will give clindamycin and Levaquin PO antibiotic at [place] for 7 days with 1 refill. Patient to follow up as OP with PCP and consultants as OP. Discharged home in stable condition. Severe Sepsis Patient meets criteria with tachycardia, febrile illness, lactic acidosis, hypotension, possible right breast postsurgical infection Patient was given vancomycin emergency department with possible allergic reaction. Pruritus improved after Benadryl Patient continued on Azactam, clindamycin Lactic acid level has returned to normal Blood cultures are pending at this time urinalysis was unremarkable, chest x-ray does not indicate any pulmonary etiology Will need further evaluations to rule out any other etiology of her sepsis Right breast postsurgical fluid collection Etiologies could include hematoma, seroma, infection Per Dr. Antonio, her plastic surgeon, recommended fluid aspiration. Interventional Radiology consulted for fluid aspiration. S/p drain placed and aspiration of 200 cc bloody fluid, patient treated with TPA, drain in place. Discusse dwiclementina Gómez IR, appreciate recommendations. US right breast interval decrease, however needs more TPA per IR 09/04/17 . Pain control per pain scale. Add morphine IV for breakthrough pain Headache/migraine: Imitrex as need. Constipation: Stool softeners/laxatives as need. Nausea: Antiemetics as need.On zofran not controlled, add phenergan, compazine, phenerhan . Patient asking to see her surgeon Dr Najera as she rue en y . Consult Dr Najera, added scopolamine patch. Nausea resolved DVT prevention Sequential compression devices Discussed with the patient, nurse, family at bedside Pt Condition on Discharge: Stable Discharge Disposition: Discharge Home Discharge Time: > 30 minutes Discharge Instructions DIET: Follow Instructions for: As Tolerated, No Restrictions Activities you can perform: Regular-No Restrictions Follow up Referrals: PCP Follow-up - 2-3 Days Plastic Surgery - 09/07/17 New Medications: Clindamycin (Clindamycin) 300 Mg Cap 300 MG PO TID for Infection, #21 CAP 1 Refill Levofloxacin (Levaquin) 750 Mg Tablet 750 MG PO DAILY for Infection, #7 TAB 1 Refill Ondansetron Odt (Ondansetron Odt) 4 Mg Tab 4 MG SL Q6HR PRN for Nausea/Vomiting for 7 Days, #14 TAB 0 Refills Scopolamine Patch 72 HR (Scopolamine Patch 72 HR) 1 Mg Patch 1 PATCH T-DERMAL Q72H for Nausea, #1 PATCH 0 Refills Lactobacillus Acidophilus (Acidophilus/l-Sporogenes) 35 Million Cell-25 Million Cell Tab 1 TAB PO TID for probiotic, #60 TAB Continued Medications: Multiple Vitamins W/ Minerals (Multivitamin Adults) 1 Tab 1 TAB PO DAILY for Nutritional Supplement, TAB 0 Refills Pantoprazole (Protonix) 40 Mg Tab 40 MG PO HS for Reflux, #30 TAB 0 Refills [Iron + Vitamin C] () Unknown Dose PO DAILY Sandra Ogden MD Sep 04, 2017 14:45
[2017-09-04] MEDS ORDERED: LACT PO (14:48)
--- NOTE | 2017-09-04 16:30 | RADRPT ---
EXAM DATE/TIME: 09/04/2017 13:19 [place] COMPARISON: US BREAST RIGHT, August 30, 2017, 22:26. INDICATIONS : Patient presents with right breast drain for sepsis in need of evaluation and possible removal. MEDICAL HISTORY : Hypertension Diabetes Hyperlipidemia Anxiety Depression Hiatal hernia GERD SURGICAL HISTORY : LAP-BAND Juvencio-en-y procedure Cholecystectomy Hysterectomy ENCOUNTER: Subsequent ACUITY: 4-6 days PAIN SCORE: 3/10 LOCATION: Right breast IMAGE SERIES: TECH NOTE: Right breast drain was removed.CAYETANO POE MR#:[id number] Exam Dt/Desc: AugustDRAINAGE CATH REMOVAL PROCEDURE : Ultrasound evaluation shows a most complete collapse of the previous hematoma collection status post 2 rounds of TPA infusion. Minimal drainage overnight. Therefore, the catheter was DC'd. CONCLUSION: Previous post surgical breast hematoma has almost completely resolved. Catheter was removed. Ibrahima Carrera MD on September 04, 2017 at 16:26 Board Certified Radiologist. This report was verified electronically.
== END 2017-09-04 16:30 | disposition home or self-care (01) | DRG 919 ==
LOC: PHED 19:02 → PHEDA 22:08 → PH5A 08-31 01:20 → N05B 08-31 23:47
PROVIDERS: ADMIT Hospitalist; ATTEND Hospitalist
PROC: 0H9T30Z Drainage of Right Breast with Drainage Device, Percutaneous Approach (ICD-10-PCS; principal; 2017-09-01)
DX: L76.32 Postprocedural hematoma of skin and subcutaneous tissue following other procedure (principal); A41.9 Sepsis, unspecified organism; R65.20 Severe sepsis without septic shock; E87.2 Acidosis; E78.5 Hyperlipidemia, unspecified; I10 Essential (primary) hypertension; I25.10 Atherosclerotic heart disease of native coronary artery without angina pectoris; K21.9 Gastro-esophageal reflux disease without esophagitis; F41.9 Anxiety disorder, unspecified; T36.8X5A Adverse effect of other systemic antibiotics, initial encounter; K59.00 Constipation, unspecified; F32.9 Major depressive disorder, single episode, unspecified; G43.909 Migraine, unspecified, not intractable, without status migrainosus; Z87.891 Personal history of nicotine dependence; Z98.84 Bariatric surgery status; Z95.5 Presence of coronary angioplasty implant and graft
CPT/HCPCS: 10160; 71010; 74177; 75989; 76642; 76937; 80048; 80053; 81001; 83605; 83690; 84702; 85025; 85610; 85652; 85730; 86140; 87040; 87070; 87205; 96361; 96374; 96375; C1729; C1769; J1200; J1885; J2270; J2405; J2997; J3010; J3370; J7030; J7050; Q9967